=== PATIENT | female | born 1975 | race Caucasian/White ===

== ENCOUNTER 2016-07-21 03:44 | Inpatient (IN) | payer MEDICARE, OTHER ==
--- NOTE | ~2016-07-21 | CR72 ---
[facility] A Service of [facility] & [facility] RADIOLOGY TEXT RESULTS PATIENT: NAZIA JUNE LOCATION: [place] [address] : [birth year] UNIT #: [id number] AGE: [address]: Teresa Palmer MD SEX: F ORDER DR: [id number] [facility] [address] [facility]. [place], [place] [address] [id number] I MR#: [id number] Acc #: [id number] NAME: NAZIA JUNE : 1975 SEX: F STUDY DATE/TIME: 07/22/2016 15:15 UNIT: [facility] ROOM: [facility] STUDY DESCRIPTION: CR Chest Single View Portable Attending Physician: Teresa Palmer M.D. Ordering Physician: Teresa Palmer M.D. Primary Care Physician: Stewart Salvador Jr., M.D. MEDICAL IMAGING REPORT This report is preliminary unless electronic signature is present EXAM Portable chest HISTORY Central line placement today. Shortness of air. FINDINGS Right IJ central line tip is in the right atrium, 4.5 cm beyond the junction SVC and right atrium. No pneumothorax. Moderate infiltrate in the right perihilar region and medial right base has increased since earlier today and mild atelectasis or infiltrate in the retrocardiac left lower lobe has developed. Remainder of the chest is stable. Dictated by... Joss Corral M.D. THIS IS AN ELECTRONICALLY VERIFIED REPORT Joss Corral M.D. at 07/22/2016 11:11 PM DFL/pcl TD: 07/22/2016 18:27 JOB #: [id number] MEDICAL IMAGING REPORT Page 1 of 1 COPY
--- NOTE | ~2016-07-21 | DS ---
Unit #: [id number] #: [id number] Patient: NAZIA JUNE [id number] [address] [address] [id number] I MR#: [id number] NAME: NAZIA JUNE. ROOM: 555 Age: 41 Sex: F Admission Date: 07/21/2016 : 1975 Discharge Date: Attending Physician: Teresa Palmer M.D. Primary Care Physician: Stewart Salvador Jr., M.D. DISCHARGE SUMMARY DISCHARGE DIAGNOSES 1. Acute hypercapnic hypoxic respiratory failure. 2. Chronic hypoxic respiratory failure using two liters home oxygen. 3. Chronic obstructive pulmonary disease with exacerbation. 4. History of seizures. 5. Metabolic acidosis. 6. Mild hyponatremia. 7. Bilateral pneumonia. 8. Bipolar. 9. Diarrhea with no Clostridium difficile. 10. Hypokalemia. 11. Low folate level with macrocytosis. 12. Acute agitation during hospitalization course secondary to bipolar. 13. Diabetes mellitus type 2, uncontrolled. 14. Mild protein malnutrition. 15. Anemia, likely iron deficiency. No bleeding. CONSULTATIONS 1. Dr. Kim. 2. Dr. Gary. 3. Dr. Perdomo. PROCEDURES Patient had diagnostic bronchoscopy and right internal jugular central venous catheter placement on July 21, 2016. DIAGNOSTIC STUDIES LABORATORY: Glucose 259. WBC 17.8, hemoglobin 11.7, and platelets 235,000. Sodium 134, potassium 3.2, creatinine 0.5. Liver enzymes normal. Albumin 3.2. Stool negative for C. difficile negative. Urine culture negative. Blood cultures negative. Bronchoscopy cultures are growing Streptococcus agalactiae group B. IMAGING: Chest x-ray stable. Chest x-ray, two view, shows no pneumothorax and no acute infiltrates. ALLERGIES None. DISCHARGE MEDICATIONS 1. DuoNebs 3 mL inhalation q.4 p.r.n. shortness of breath. 2. Zofran 4 mg q.6 p.r.n. nausea or vomiting. 3. Topamax 50 p.o. b.i.d. 4. Seroquel 50 mg p.o. b.i.d. Unit #: [id number] #: [id number] Patient: NAZIA JUNE 5. Colace 100 p.o. b.i.d. 6. Folic acid 1 mg p.o. b.i.d. 7. Bacitracin ointment apply b.i.d. topically. 8. Symbicort 160 mcg 1 puff inhalation b.i.d. 9. NovoLog high-dose sliding scale a.c. and at bedtime. HOSPITAL COURSE A 41-year-old admitted on July 21 for shortness of breath. Acute hypercapnic, hypoxic respiratory failure with chronic hypoxic respiratory failure. Patient was intubated and sedated. Currently, she is on three liters. Continue with oxygen. Chronic obstructive pulmonary disease with exacerbation. Started on IV Solu-Medrol, DuoNebs, and Symbicort. Currently breathing better. Patient will be discharged on DuoNebs and Symbicort. History of seizures. Patient is not on any seizure medicine. She is on Topamax which I am going to continue. History of bipolar with severe agitation during hospitalization course. Patient was seen by Dr. Perdomo. Patient did receive a high dose of Seroquel, but later patient got lethargic, so Seroquel has been decreased to p.o. b.i.d. She will continue with Topamax 50 p.o. b.i.d. Bilateral pneumonia present on pneumonia, (1) . Patient is growing Streptococcus agalactiae. Patient received broad spectrum antibiotics. She completed her course. Infectious Disease was closely following. Diarrhea with no C. difficile most likely secondary to antibiotics. Diabetes mellitus type 2, new onset, uncontrolled. Patient will continue with sliding scale. Likely, hyperglycemia is from prednisone which has been discontinued. DISPOSITION Patient will be discharged to rehab. Her (2) . FOLLOWUP Patient will follow with [facility] as an outpatient in three weeks for bipolar and agitation. Discharge time taken is 35 minutes. Dictated by... Marissa Pickens TD: 08/02/2016 15:36 JOB #: [id number] Unit #: [id number] #: [id number] Patient: NAZIA JUNE DISCHARGE SUMMARY Page 1 of 1 X Teresa Palmer MD SUMMARY
--- NOTE | ~2016-07-21 | OR ---
Unit #: [id number] #: [id number] Patient: NAZIA JUNE [id number] [address] [address] [id number] I MR#: [id number] NAME: NAZIA JUNE ROOM: [facility] Date of Procedure: Admission Date: 07/21/2016 Surgeon: Zane Kim M.D. : 1975 Attending Physician: Teresa Palmer M.D. Primary Care Physician: Stewart Salvador Jr., M.D. PROCEDURE OPERATIVE NOTE PREPROCEDURE DIAGNOSIS Pneumonia. POSTPROCEDURE DIAGNOSIS Pneumonia. PROCEDURE PERFORMED Diagnostic bronchoscopy and bronchoalveolar lavage. INDICATION Pneumonia. DETAILS OF THE PROCEDURE After taking consent from the patient explaining the risks and benefits, the patient was placed in a proper position and bronchoscope introduced through the endotracheal tube which was sitting well above the valerie. We examined the right upper, right middle, right lower lobe, left upper lobe, lingula and left lower lobe. No endobronchial lesion was found. There was thick mucoid section in both lung which was therapeutically suctioned. Then, we did a bronchoalveolar lavage in the right middle lobe area and right lower lobe area with 100 mL saline in and 30 mL back. The patient tolerated the procedure very well. No complication happened. Dictated by... Marissa Calhoun/delvis TD: 07/22/2016 18:14 JOB #: [id number] Unit #: [id number] #: [id number] Patient: NAZIA JUNE PROCEDURE OPERATIVE NOTE Page 1 of 1 X Zane Kim MD PROCEDURE OPERATIVE NOTE
--- NOTE | ~2016-07-21 | CT57 ---
[facility] A Service of [facility] & [facility] RADIOLOGY TEXT RESULTS PATIENT: NAZIA JUNE LOCATION: [address] : [birth year] UNIT #: [id number] AGE: [address]: Teresa Palmer MD SEX: F ORDER DR: [id number] [facility] [address] [facility]. [place], [place] [address] [id number] I MR#: [id number] Acc #: [id number] NAME: NAZIA JUNE. : 1975 SEX: F STUDY DATE/TIME: 07/21/2016 14:11 UNIT: [facility] ROOM: [facility] STUDY DESCRIPTION: CT Chest Wo Cont Attending Physician: Teresa Palmer M.D. Ordering Physician: Zane Kim M.D. Primary Care Physician: Stewart Salvador Jr., M.D. MEDICAL IMAGING REPORT This report is preliminary unless electronic signature is present EXAM CT of the chest without contrast INDICATIONS Pneumonia, shortness of breath since this morning, COPD exacerbation. Respiratory failure. Mechanical ventilation. TECHNIQUE CT of the chest was performed without contrast. Coronal and sagittal reformatted images were obtained. This CT exam was performed with one or more of the following radiation dose reduction techniques: automatic exposure control, adjustment of mA and/or kV according to patient size, and iterative reconstruction. COMPARISON 04/26/2016 FINDINGS There are bilateral interstitial infiltrates, greatest in the lower lobes. There is a more dense area of atelectasis or consolidation in the base of right lower lobe. There is some patchy ground-glass opacities within both lungs. There is trace pleural fluid at the right base. There is an endotracheal tube in place. There is some mildly prominent mediastinal lymph nodes which are likely reactive, given the findings in the lungs. Limited imaging of the upper abdomen demonstrates a previous cholecystectomy. The bone windows are unremarkable. IMPRESSION 1. There are bilateral interstitial infiltrates, some of them coarse. These are mostly located within the lower lobes, but also in the upper lobes as well. There are also scattered ground-glass opacities within the lungs, and there is either atelectasis or consolidation within the base of the right lower lobe. The findings may represent STS. [facility] A Service of [facility] & [facility] RADIOLOGY TEXT RESULTS PATIENT: NAZIA JUNE LOCATION: [address] : [birth year] UNIT #: [id number] AGE: [address]: Teresa Palmer MD SEX: F ORDER DR: pneumonia or could be pulmonary edema. Correlate clinically. 2. Additional findings as described. Dictated by... Femi Wilkins M.D. THIS IS AN ELECTRONICALLY VERIFIED REPORT Femi Wilkins M.D. at 07/22/2016 9:36 AM SUE/osvaldo TD: 07/21/2016 16:57 JOB #: [id number] MEDICAL IMAGING REPORT Page 1 of 1 COPY
--- NOTE | ~2016-07-21 | OR ---
Unit #: [id number] #: [id number] Patient: NAZIA JUNE [id number] [address] [address] [id number] I MR#: [id number] NAME: NAZIA JUNE ROOM: [facility] Date of Procedure: Admission Date: 07/21/2016 Surgeon: Zane Kim M.D. : 1975 Attending Physician: Teresa Palmer M.D. Primary Care Physician: Stewart Salvador Jr., M.D. PROCEDURE OPERATIVE NOTE PREPROCEDURE DIAGNOSIS Respiratory failure. POSTPROCEDURE DIAGNOSIS Respiratory failure. PROCEDURE PERFORMED Right internal jugular central venous catheter placement. INDICATION Respiratory failure. DETAILS OF THE PROCEDURE After placing the patient in a proper position, we prepped the right side of the neck with ChloraPrep and, with modified Seldinger technique and ultrasound guidance, a triple-lumen central venous catheter placed in the right internal jugular vein. All three ports flushed and working. Guidewire was removed in total. No complication happened. The patient tolerated the procedure very well. Dictated by... Marissa Calhoun TD: 07/22/2016 18:18 JOB #: [id number] PROCEDURE OPERATIVE NOTE Page 1 of 1 X Zane iKm MD X PROCEDURE OPERATIVE NOTE
--- NOTE | ~2016-07-21 | CR72 ---
[facility] A Service of [facility] RADIOLOGY TEXT RESULTS PATIENT: NAZIA JUNE LOCATION: [address] : [birth year] UNIT #: [id number] AGE: [address]: Teresa Palmer MD SEX: F ORDER DR: [id number] [facility] [address] [facility]. [place], [place] [address] [id number] I MR#: [id number] Acc #: [id number] NAME: NAZIA JUNE : 1975 SEX: F STUDY DATE/TIME: 07/29/2016 4:04 UNIT: [facility] ROOM: [facility] STUDY DESCRIPTION: CR Chest Single View Portable Attending Physician: Teresa Palmer M.D. Ordering Physician: Zane Kim M.D. Primary Care Physician: Stewart Salvador Jr., M.D. MEDICAL IMAGING REPORT This report is preliminary unless electronic signature is present EXAM AP portable chest DATE 07/29/2016 at 0404 HISTORY Respiratory failure. COMPARISON AP portable chest 07/20/2016. CT chest 07/26/2016. FINDINGS Linear interstitial markings in both lungs predominately in the suprahilar regions appear unchanged. No dense consolidation. Heart size is within normal limits. Dobbhoff tube and ET tube have been removed. The right IJ approach central line remains at the right atrial level. No visible pneumothorax. IMPRESSION 1. Stable interstitial features in both lungs predominately in the suprahilar regions, without consolidation. 2. ET tube and Dobbhoff tube removal. 3. No pneumothorax. Dictated by... Justine Acosta M.D. THIS IS AN ELECTRONICALLY VERIFIED REPORT Justine Acosta M.D. at 07/30/2016 4:19 AM [facility]/shayy [facility] A Service [facility] RADIOLOGY TEXT RESULTS PATIENT: NAZIA JUNE LOCATION: [facility]05-10 : [birth year] UNIT #: [id number] AGE: [address]: Teresa Palmer MD SEX: F ORDER DR: TD: 07/29/2016 08:26 JOB #: [id number] MEDICAL IMAGING REPORT Page 1 of 1 COPY
--- NOTE | ~2016-07-21 | CR72 ---
[facility] A Service [facility] RADIOLOGY TEXT RESULTS PATIENT: NAZIA JUNE LOCATION: [address] : [birth year] UNIT #: [id number] AGE: [address]: Teresa Palmer MD SEX: F ORDER DR: [id number] [facility] [address] [facility]. [place], [place] [address] [id number] I MR#: [id number] Acc #: [id number] NAME: NAZIA JUNE : 1975 SEX: F STUDY DATE/TIME: 07/24/2016 2:50 UNIT: [facility] ROOM: [facility] STUDY DESCRIPTION: CR Chest Single View Portable Attending Physician: Teresa Palmer M.D. Ordering Physician: Zane Kim M.D. Primary Care Physician: Stewart Salvador Jr., M.D. MEDICAL IMAGING REPORT This report is preliminary unless electronic signature is present EXAM AP portable chest, 07/24/2016 HISTORY Respiratory failure. Followup cardiopulmonary status. TECHNIQUE AP portable chest x-ray. FINDINGS The exam shows no change since yesterday. Patchy interstitial and airspace infiltrates throughout both lungs remain stable. Heart size normal. No pneumothorax or pleural effusion. Endotracheal tube, right IJ central line and Dobbhoff feeding tube remain in good position. IMPRESSION Stable portable chest radiograph, unchanged since yesterday. Dictated by... Nick Díaz M.D. THIS IS AN ELECTRONICALLY VERIFIED REPORT Nick Díaz M.D. at 07/24/2016 5:58 AM FELISHA/filiberto TD: 07/24/2016 04:42 JOB #: [id number] [facility] A Service [facility] RADIOLOGY TEXT RESULTS PATIENT: NAZIA JUNE LOCATION: [address] : [birth year] UNIT #: [id number] AGE: [address]: Teresa Palmer MD SEX: F ORDER DR: MEDICAL IMAGING REPORT Page 1 of 1 COPY
--- NOTE | ~2016-07-21 | CR72 ---
[facility] A Service of [facility] & [facility] RADIOLOGY TEXT RESULTS PATIENT: NAZIA JUNE LOCATION: [facility] : [birth year] UNIT #: [id number] AGE: [address]: Teresa Palmer MD SEX: F ORDER DR: [id number] [facility] [address] [place], [place] [address] [id number] E MR#: [id number] Acc #: [id number] NAME: NAZIA JUNE : 1975 SEX: F STUDY DATE/TIME: 07/21/2016 3:56 UNIT: [facility] ROOM: STUDY DESCRIPTION: CR Chest Single View Portable Attending Physician: Jose David Escamilla M.D. Ordering Physician: Jose David Escamilla M.D. Primary Care Physician: Stewart Salvador Jr., M.D. MEDICAL IMAGING REPORT This report is preliminary unless electronic signature is present EXAM Portable chest 07/21/2016 INDICATION Shortness of air, chest pain for a week. COMPARISON 05/10/2016. FINDINGS A portable view of the chest was obtained. The heart size and vascularity are normal. The lungs are clear. The bones are normal. IMPRESSION No active disease. Dictated by... Nikos Tellez M.D. THIS IS AN ELECTRONICALLY VERIFIED REPORT Nikos Tellez M.D. at 07/21/2016 1:15 PM JUSTIN/rubén TD: 07/21/2016 06:19 JOB #: [id number] MEDICAL IMAGING REPORT Page 1 of 1 COPY
--- NOTE | ~2016-07-21 | CR72 ---
[facility] A Service of [facility] & [facility] RADIOLOGY TEXT RESULTS PATIENT: NAZIA JUNE LOCATION: [place] [address] : [birth year] UNIT #: [id number] AGE: [address]: Teresa Palmer MD SEX: F ORDER DR: [id number] [facility] [address] [place], [place] [address] [id number] I MR#: [id number] Acc #: [id number] NAME: NAZIA JUNE : 1975 SEX: F STUDY DATE/TIME: 07/23/2016 14:02 UNIT: [facility] ROOM: [facility] STUDY DESCRIPTION: CR Chest Single View Portable Attending Physician: Teresa Palmer M.D. Ordering Physician: Zane Kim M.D. Primary Care Physician: Stewart Salvador Jr., M.D. MEDICAL IMAGING REPORT This report is preliminary unless electronic signature is present EXAM Portable chest INDICATIONS Respiratory failure today. PROCEDURE Frontal view chest. COMPARISON 07/22/2016 FINDINGS Patchy alveolar and interstitial prominence is stable. ET tube and Dobbhoff tube are unchanged. There is no new dense consolidation or pneumothorax. IMPRESSION Stable chest. Dictated by... Chaz Leonardo M.D. THIS IS AN ELECTRONICALLY VERIFIED REPORT Chaz Leonardo M.D. at 07/24/2016 9:43 AM EED/psc TD: 07/23/2016 16:08 JOB #: [id number] MEDICAL IMAGING REPORT Page 1 of 1 COPY
--- NOTE | ~2016-07-21 | CR72 ---
[facility] A Service of [facility] & [facility] RADIOLOGY TEXT RESULTS PATIENT: NAZIA JUNE LOCATION: [facility] 555- : [birth year] UNIT #: [id number] AGE: [address]: Teresa Palmer MD SEX: F ORDER DR: [id number] [facility] [address] [facility]. [place], [place] [address] [id number] I MR#: [id number] Acc #: [id number] NAME: NAZIA JUNE : 1975 SEX: F STUDY DATE/TIME: 07/30/2016 3:45 UNIT: [facility] ROOM: [facility] STUDY DESCRIPTION: CR Chest Single View Portable Attending Physician: Teresa Palmer M.D. Ordering Physician: Zane Kim M.D. Primary Care Physician: Stewart Salvador Jr., M.D. MEDICAL IMAGING REPORT This report is preliminary unless electronic signature is present EXAM AP portable chest, 07/30/2016 at 03:45 HISTORY Respiratory failure, symptoms began 07/21/2016. COPD. History of smoking. History of seizures. COMPARISON AP portable chest, 07/29/2016 at 04:04 FINDINGS Patient's chin partially obscures the lung apices. Right IJ central line tip extends to the upper right atrial level. No pneumothorax is visible. Heart size is within normal limits. Fine interstitial markings are present within both lungs which could represent atypical interstitial pneumonia or edema. No dense consolidation is identified. Improved aeration in the upper lobes compared to 1 day prior. Presumed cholecystectomy changes. IMPRESSION 1. Ill-defined interstitial opacities throughout both lungs, greatest in the bases, with slight improved aeration in the upper lobes compared to 1 day prior. Findings may represent improving atypical interstitial edema or pneumonia since 07/29/2016. 2. No visible pneumothorax. Dictated by... Justine Acosta M.D. THIS IS AN ELECTRONICALLY VERIFIED REPORT Justine Acosta M.D. at 07/30/2016 10:02 PM [facility]/dione [facility] A Service of [facility] & [facility] RADIOLOGY TEXT RESULTS PATIENT: NAZIA JUNE LOCATION: [address] 555-01 : [birth year] UNIT #: [id number] AGE: [address]: Teresa Palmer MD SEX: F ORDER DR: TD: 07/30/2016 09:37 JOB #: [id number] MEDICAL IMAGING REPORT Page 1 of 1 COPY
--- NOTE | ~2016-07-21 | FU ---
[facility] Nutrition Therapy DATE: 07/28/16 Patient: NAZIA JUNE Physician: JYOKAElida Address: [address] [place] [address] Room/Bed: [address], Zip: [place] [address] Admit Date: 07/21/16 Date of : [birth year] Height: 4 9 Weight: 141 64 NUTRITION MONITORING/FOLLOW-UP: Reason: PT SEEN FOR FOLLOW-UP/ENTERAL NUTRITION SUPPORT DX: COPD, PNA, RESP FAILURE Anthropometrics: 4'9", WT: 141# (64 KG), BMI: 30.5 -ADMIT WEIGHT: 149# Labs: GLU: 189, BUN: 31, CREAT: 0.5, ALB: 3.2, ALT: 52 Meds: NACL, NOVOLOG, FUROSEMIDE, KCL, IV LEVAQUIN, SOLU-MEDROL, MIRALAX, PROTONIX, PROPOFOL (CURRENTLY OFF) I&O's: 2636/4186, 1 BM NOTED Skin: BILATERAL HANDS TRACE EDEMA Estimated Nutrition Needs: 2313-2034 KCAL 61-75 G PRO Assessment: CHART REVIEWED AND EVENTS NOTED. PT SEEN FOR ENTERAL NUTRITION SUPPORT FOLLOW-UP. PT CONTINUES TO BE INTUBATED AND SEDATED RECEIVING EN OF JEVITY 1.5 @ 40 ML/HR + 250 ML TID FREE H20 FLUSHES. PER RN AND CHART, PT TOLERATING EN, NOTING NO ISSUES AT THIS TIME. PER PUMP HISTORY, PT RECEIVING ~90% ESTIMATED NEEDS PAST 24 HOURS. NO FAMILY IN ROOM AT THIS TIME. RD TO CONTINUE TO FOLLOW. -TUBE FEEDS PROVIDE 1440 KCAL, 61 G PRO, 1480 ML FREE H20 Dx: INADEQUATE ORAL INTAKE R/T PT INTUBATED AEB EN IN PLACE.-ACTIVE. Intervention: 1. ENTERAL NUTRITION Monitoring, Evaluation and Goals: 1. ENTERAL NUTRITION SUPPORT; PROVIDE ~80-100% ESTIMATED NUTRIENT NEEDS- RESOLVED/ACTIVE 2. ORAL INTAKE; ADVANCE DIET PER SAUSAGE TIER + TOLERATE MEALS W/NO C/O N/V/D (PO>50%)-NOT MET 3. WEIGHTS; PROMOTE GRADUAL WEIGHT LOSS-ACTIVE 4. LABS; WNL: GLU-ACTIVE MONITOR: -TF RATE/RESIDUALS -WEIGHTS -LABS (GLU) -EXTUBATION? [facility] Nutrition Therapy DATE: 07/28/16 Patient: NAZIA JUNE Physician: CARLOS Address: [address] [place] [address] Room/Bed: [address], Zip: [place] [address] Admit Date: 07/21/16 Date of : [birth year] Height: 4 9 Weight: 141 64 Recommendations: 1. CONTINUE CURRENT ENTERAL NUTRITION SUPPORT OF JEVITY 1.5 @ 40 ML/HR -ADEQUATE FOR PT'S CURRENT ESTIMATED NEEDS CONTINUE FREE H20 FLUSHES PER MD 2. CONTINUE TO MONITOR BLOOD SUGARS-OPTIMIZE BLOOD SUGAR REGIMEN 3. ONCE PT EXTUBATED, ADVANCE DIET PER SAUSAGE TIER + REGULAR DIET RD WILL F/U PER PROTOCOL PT IS MOD/SEVERELY COMPROMISED Respectfully, ASPEN WILSON MS, RD, LD [facility] cc: client file
--- NOTE | ~2016-07-21 | CO ---
Unit #: [id number] #: [id number] Patient: NAZIA JUNE [id number] [address] [address] [id number] I MR#: [id number] NAME: NAZIA JUNE. ROOM: 54173 Age: 41 Sex: F Admission Date: 07/21/2016 : 1975 Attending Physician: Teresa Palmer M.D. Primary Care Physician: Stewart Salvador Jr., M.D. Consultation Date: 07/21/2016 CONSULTATION REPORT CHIEF COMPLAINT Shortness of breath. REASON FOR CONSULTATION Respiratory failure and chronic obstructive pulmonary disease exacerbation. HISTORY OF PRESENT ILLNESS The patient is a 41-year-old female who presented with complaints of shortness of breath. She has a past medical history of depression, bipolar disorder, chronic obstructive pulmonary disease and seizure disorder. She was given IV steroids and intubated by the emergency room physician. I am seeing the patient at the bedside. She is currently intubated and sedated. PAST MEDICAL HISTORY As described above. 1. Seizure disorder. 2. Bipolar. 3. Migraine headaches. PAST SURGICAL HISTORY 1. Appendectomy. 2. . 3. Cholecystectomy. ALLERGIES None as per records. CURRENT MEDICATIONS As per MAR. Have been reviewed. REVIEW OF SYSTEMS Positive pallor. No edema. No cyanosis or jaundice. The rest of the 12-point review of systems is unobtainable. PHYSICAL EXAMINATION GENERAL: Sedated, intubated. LUNGS: Bilateral air entry. Bilateral mild rhonchi. HEART: S1 plus S2. ABDOMEN: Nontender. Soft. Bowel sounds positive. EXTREMITIES: No edema. DIAGNOSTIC STUDIES Unit #: [id number] #: [id number] Patient: NAZIA JUNE IMAGING: Chest x-ray showed bilateral perihilar infiltrates increasing. LABORATORY: Blood gas, pH 7.26, pCO2 46, pO2 93, bicarb 19. chloride 103, calcium 8.0, white blood cell count 9, hemoglobin 13, hematocrit 40, platelets 190. ASSESSMENT 1. Acute respiratory failure. 2. Metabolic acidosis. 3. Acute chronic obstructive pulmonary disease exacerbation. 4. Acute bronchitis. PLAN Get a two-dimensional echo. Continue ventilator support, troponins, IV steroids, IV antibiotics. Check for flu. Noncontrast CT of the chest. The patient will be closely monitored. Please see orders for detailed plan. Thank you very much for this consultation. We will continue to follow this patient. Total critical care time 65 minutes in direct critical care of this patient. Dictated by... Marissa Calhoun/amber TD: 07/21/2016 10:28 JOB #: [id number] CONSULTATION REPORT Page 1 of 1 X Zane Kim MD X CONSULTATION REPORT
--- NOTE | ~2016-07-21 | CR72 ---
[facility] A Service of [facility] & [facility] RADIOLOGY TEXT RESULTS PATIENT: NAZIA JUNE LOCATION: [place] [address] : [birth year] UNIT #: [id number] AGE: [address]: Teresa Palmer MD SEX: F ORDER DR: [id number] [facility] [address]. [place], [place] [address] [id number] I MR#: [id number] Acc #: [id number] NAME: NAZIA JUNE : 1975 SEX: F STUDY DATE/TIME: 07/28/2016 4:15 UNIT: [facility] ROOM: [facility] STUDY DESCRIPTION: CR Chest Single View Portable Attending Physician: Teresa Palmer M.D. Ordering Physician: Zane Kim M.D. Primary Care Physician: Stewart Salvador Jr., M.D. MEDICAL IMAGING REPORT This report is preliminary unless electronic signature is present EXAM Chest x-ray 07/28/2016 HISTORY Respiratory failure. Patient on ventilator. Follow up cardiopulmonary status. TECHNIQUE AP portable chest x-ray. FINDINGS There has been no change since yesterday. Endotracheal tube, right IJ central line and Dobbhoff feeding tube remain in good position. Diffusely increased interstitial markings throughout both lungs, stable. Heart size normal. No airspace consolidation, pneumothorax or pleural effusion. IMPRESSION Stable portable chest radiograph, unchanged since yesterday. Dictated by... Nick Díaz M.D. THIS IS AN ELECTRONICALLY VERIFIED REPORT Nick Díaz M.D. at 08/02/2016 9:15 AM FELISHA/jerilyn TD: 07/28/2016 06:35 JOB #: [id number] MEDICAL IMAGING REPORT Page 1 of 1 COPY
--- NOTE | ~2016-07-21 | CR63 ---
[facility] A Service of [facility] & [facility] RADIOLOGY TEXT RESULTS PATIENT: NAZIA JUNE LOCATION: [address] : [birth year] UNIT #: [id number] AGE: [address]: Teresa Palmer MD SEX: F ORDER DR: [id number] [facility] [address] [place], [place] [address] [id number] I MR#: [id number] Acc #: [id number] NAME: NAZIA JUNE : 1975 SEX: F STUDY DATE/TIME: 07/31/2016 9:00 UNIT: [facility] ROOM: [facility] STUDY DESCRIPTION: CR Chest 2 View Attending Physician: Teresa Palmer M.D. Ordering Physician: Zane Kim M.D. Primary Care Physician: Stewart Salvador Jr., M.D. MEDICAL IMAGING REPORT This report is preliminary unless electronic signature is present EXAM 2 views of the chest dated 07/31/2016 COMPARISON Single view chest dated 07/30/2016. HISTORY Severe weakness, shortness of air, and respiratory failure for 10 days. FINDINGS 2 views of the chest was obtained. The tip of the right IJ approach catheter is in the region of the cavoatrial junction and adjacent right atrium. It has to be pulled back by another 3.5-4.5 cm and reimaged to confirm tip positioning. It is stable when compared to the prior study from yesterday. No associated pneumothorax. No new cardiopulmonary disease. Heart and mediastinum are within normal limits. Dictated by... Frederic Gabriel M.D. THIS IS AN ELECTRONICALLY VERIFIED REPORT Frederic Gabriel M.D. at 07/31/2016 3:24 PM CPR/aa TD: 07/31/2016 11:26 JOB #: [id number] MEDICAL IMAGING REPORT Page 1 of 1 COPY
--- NOTE | ~2016-07-21 | CT16 ---
[facility] A Service of [facility] RADIOLOGY TEXT RESULTS PATIENT: NAZIA JUNE LOCATION: [place] [address] : [birth year] UNIT #: [id number] AGE: [address]: Teresa Palmer MD SEX: F ORDER DR: [id number] [facility] [address] [facility] [place], [place] [address] [id number] I MR#: [id number] Acc #: [id number] NAME: NAZIA JUNE. : 1975 SEX: F STUDY DATE/TIME: 07/26/2016 15:06 UNIT: [facility] ROOM: [facility] STUDY DESCRIPTION: CT Angio Chest for PE Attending Physician: Teresa Palmer M.D. Ordering Physician: Zane Kim M.D. Primary Care Physician: Stewart Salvador Jr., M.D. MEDICAL IMAGING REPORT This report is preliminary unless electronic signature is present EXAM CT scan of the chest for pulmonary embolus protocol. HISTORY Short of air since 07/21/2016. Patient is unresponsive and on ventilator. COMPARISON 04/26/2016 TECHNIQUE Patient was given 80 mL of Isovue-370. Spiral imaging was performed through the chest. 3-dimensional reconstructions of the pulmonary arteries were generated. This CT exam was performed with one or more of the following radiation dose reduction techniques: automatic exposure control, adjustment of mA and/or kV according to patient size, and iterative reconstruction. FINDINGS The visualized portions of the upper abdomen show prior cholecystectomy, and the Dobbhoff tube is in the stomach. The aorta is normal in size, and there is no dissection. Pulmonary arteries are adequately opacified, and there is no CT evidence of pulmonary embolus. The tracheostomy tube is in good position. There is no mediastinal or hilar adenopathy. The bones are unremarkable. There are patchy bilateral ground glass infiltrates throughout both lungs. IMPRESSION 1. Fairly extensive patchy ground glass infiltrates. 2. No CT evidence of pulmonary embolism or dissection. 3. The endotracheal tube is in good position. [facility] A Service of [facility] & [facility] RADIOLOGY TEXT RESULTS PATIENT: NAZIA JUNE LOCATION: [address] : [birth year] UNIT #: [id number] AGE: [address]: Teresa Palmer MD SEX: F ORDER DR: Dictated by... Nikos Tellez M.D. THIS IS AN ELECTRONICALLY VERIFIED REPORT Nikos Tellez M.D. at 07/27/2016 7:17 AM JUSTIN/osvaldo TD: 07/26/2016 16:50 JOB #: [id number] MEDICAL IMAGING REPORT Page 1 of 1 COPY
--- NOTE | ~2016-07-21 | CR72 ---
[facility] A Service of [facility] & [facility] RADIOLOGY TEXT RESULTS PATIENT: NAZIA JUNE LOCATION: [address] : [birth year] UNIT #: [id number] AGE: [address]: Teresa Palmer MD SEX: F ORDER DR: [id number] [facility] [address]. [place], [place] [address] [id number] I MR#: [id number] Acc #: [id number] NAME: NAZIA JUNE : 1975 SEX: F STUDY DATE/TIME: 07/22/2016 4:34 UNIT: [facility] ROOM: [facility] STUDY DESCRIPTION: CR Chest Single View Portable Attending Physician: Teresa Palmer M.D. Ordering Physician: Zane Kim M.D. Primary Care Physician: Stewart Salvador Jr., M.D. MEDICAL IMAGING REPORT This report is preliminary unless electronic signature is present EXAM AP portable chest 07/22/2016 HISTORY Respiratory failure. Patient on ventilator. Follow up cardiopulmonary status. TECHNIQUE AP portable chest x-ray. FINDINGS The exam shows no change since yesterday. Endotracheal tube and Dobbhoff feeding tube remain in good position. Heart size is normal. Mild, somewhat patchy interstitial infiltrate or edema throughout both lungs, greatest in the perihilar regions. No dense airspace consolidation or pleural effusion. IMPRESSION Stable portable chest radiograph, unchanged since yesterday. Dictated by... Nick Díaz M.D. THIS IS AN ELECTRONICALLY VERIFIED REPORT Nick Díaz M.D. at 07/22/2016 5:58 AM FELISHA/erica TD: 07/22/2016 05:04 JOB #: [id number] MEDICAL IMAGING REPORT Page 1 of 1 COPY
--- NOTE | ~2016-07-21 | CR72 ---
[facility] A Service of [facility] & [facility] RADIOLOGY TEXT RESULTS PATIENT: NAZIA JUNE LOCATION: [address] : [birth year] UNIT #: [id number] AGE: [address]: Teresa Palmer MD SEX: F ORDER DR: [id number] [facility] [address]. [place], [place] [address] [id number] I MR#: [id number] Acc #: [id number] NAME: NAZIA JUNE : 1975 SEX: F STUDY DATE/TIME: 07/26/2016 2:23 UNIT: [facility] ROOM: [facility] STUDY DESCRIPTION: CR Chest Single View Portable Attending Physician: Teresa Palmer M.D. Ordering Physician: Zane Kim M.D. Primary Care Physician: Stewart Salvador Jr., M.D. MEDICAL IMAGING REPORT This report is preliminary unless electronic signature is present EXAM AP portable chest 07/26/2016. HISTORY Respiratory failure. Patient on ventilator. Follow up cardiopulmonary status. TECHNIQUE AP portable chest x-ray. FINDINGS The exam shows no change since yesterday. Mild diffuse pulmonary infiltrates, greatest at the right lung base. Endotracheal tube in good position. Right IJ central line tip in the right atrium. Feeding tube below the diaphragm. Heart size normal. IMPRESSION Stable portable chest radiograph, unchanged since yesterday. Dictated by... Nick Díaz M.D. THIS IS AN ELECTRONICALLY VERIFIED REPORT Nick Díaz M.D. at 07/26/2016 5:59 AM FELISHA/bryant TD: 07/26/2016 03:10 JOB #: [id number] MEDICAL IMAGING REPORT Page 1 of 1 COPY
--- NOTE | ~2016-07-21 | HP ---
Unit #: [id number] #: [id number] Patient: NAZIA JUNE [id number] [address] [address] [id number] I MR#: [id number] NAME: NAZIA JUNE. ROOM: 62[address] Age: 41 Sex: F Admission Date: 07/21/2016 : 1975 Attending Physician: Teresa Palmer M.D. Primary Care Physician: Stewart Salvador Jr., M.D. HISTORY AND PHYSICAL CHIEF COMPLAINT Shortness of breath. HISTORY OF PRESENT ILLNESS This is a 41-year-old with history of COPD admitted because of shortness of breath. Currently, patient is intubated and sedated so most of the history is taken from ER physician, chart, and her sister. According to the history of, she was short of breath for two weeks, which also has congestion. No fever, no chills, and no chest pain. Has cough, nonproductive cough. No heart racing. No dizziness. No syncope. No seizures. Her shortness of breath got worse. She is intubated and brought to ER. Currently, intubated and sedated. PAST MEDICAL HISTORY 1. History of COPD. 2. Depression. 3. Bipolar. 4. Appendectomy. 5. Hysterectomy. 6. section. ALLERGIES None. CURRENT HOME MEDICATIONS Unavailable. I will get it from her pharmacy. SOCIAL HISTORY Smokes 1 pack of cigarettes per day. No alcohol. No drugs. FAMILY HISTORY Positive for hypertension. REVIEW OF SYSTEMS Unobtainable because patient is intubated and sedated. PHYSICAL EXAMINATION VITAL SIGNS: Temperature 98.3, pulse 83, respirations 14, and blood pressure 151/78. GENERAL APPEARANCE: 41-year-old lying on bed not in acute distress. Intubated and sedated. HEENT: pupils are equal and reactive to light and accommodation. No pallor. No icterus. Dry mucosa. NECK: Supple. Unit #: [id number] #: [id number] Patient: NAZIA JUNE HEART: S1 and S2 heard. Regular rhythm. Tachycardia present. LUNGS: Bilateral wheezing present. ABDOMEN: Soft and nontender. Bowel sounds are present. EXTREMITIES: No pedal edema. SKIN: No rash. NEUROLOGICAL: Patient is sedated. DIAGNOSTIC STUDIES LABORATORY: Lactic acid 1. Troponin negative. ABG: pH 7.26, carbon dioxide 25, oxygen 93. Sodium 133, potassium 3.5, creatinine (1) , AST 53, ALT 33, alkaline phosphatase 85, total bilirubin 0.8, albumin 3.4. IMAGING: Chest x-ray initially is clear. Repeat chest x-ray today shows bilateral perihilar infiltrates, slightly increased. CARDIOVASCULAR: EKG: Sinus tachycardia. ASSESSMENT AND PLAN 1. Acute hypercapnic hypoxic respiratory failure currently intubated and sedated. Continue with the DuoNeb and IV Solu-Medrol and monitor. 2. COPD with exacerbation. Continue the DuoNeb and IV Solu-Medrol and monitor her pulse ox. 3. History of seizures. I will get set seizure medicine from pharmacy and give it to her. 4. Metabolic acidosis. Continue with IV fluids. 5. Mild hypernatremia, most likely from hypovolemia. Continue with IV fluids. 6. Possible bilateral pneumonia present on admission. Rule out other causes of bilateral infiltrates. I am going to check BNP and echocardiogram. I am going to start her on IV doxycycline and monitor. Going to repeat the chest x-ray in the morning. 7. History of bipolar. Currently intubated. 8. DVT prophylaxis with Lovenox and GI prophylaxis with Protonix. Dictated by Marissa Pickens/andreas TD: 07/21/2016 12:24 JOB #: [id number] HISTORY AND PHYSICAL Page 1 of 1 X Teresa Palmer MD X HISTORY AND PHYSICAL
--- NOTE | ~2016-07-21 | FU ---
[facility] DATE: 07/25/16 Patient: NAZIA JUNE Physician: CARLOS Address: [address] [place] [address] Room/Bed: [address], Zip: [place] [address] Admit Date: 07/21/16 Date of : [birth year] Height: 4 9 Weight: 163 74 NUTRITION MONITORING/FOLLOW-UP: Reason: PT SEEN FOR FOLLOW-UP/ENTERAL NUTRITION SUPPORT DX: SOA, PNA, RESPIRATORY FAILURE Anthropometrics: 57 INCHES, 163# (74 KG), BMI: 35.3 -ADMIT WEIGHT: 149# (68 KG) Labs: GLU: 316, BUN: 32, CA+:8.2, ALB: 2.5, A1c: 6.4, K+:2.8 Meds: NACL, NOVOLOG, FUROSEMIDE, LEVEMIR, KCL, FENTANYL, IV LEVAQUIN, PROPOFOL, SOLU-MEDROL, MIRALAX, ZOFRAN, PROTONIX I&O's: 9676/8476 Skin: BUE 1+ EDEMA; FEET TRACE EDEMA Estimated Nutrition Needs: [phone] KCAL 61-75 G PRO Assessment: CHART REVIEWED AND EVENTS NOTED. PT SEEN FOR ENTERAL NUTRITION SUPPORT FOLLOW-UP. PT CONTINUES TO BE INTUBATED AND SEDATED (PROPOFOL AT RATE OF 24.5 ML/HR PROVIDING ~647 KCAL FROM LIPIDS) RECEIVING ALTERNATIVE NUTRITION SUPPORT OF JEVITY 1.5 @ 20 ML/HR + PROSTAT BID. PER RN AND CHART, PT TOLERATING EN, NOTING NO ISSUES. NO FAMILY IN ROOM AT TIME OF VISIT. RD TO CONTINUE TO FOLLOW. -CURRENT EN PROVIDES 1567 KCAL, 61 G PRO, 365 ML FREE H20 Dx: INADEQUATE ORAL INTAKE R/T INTUBATION AEB NPO STATUS, NEED FOR EN.-SIGNS AND SYPMTOMS RESOLVED. STAGE I OBESE R/T LIFESTYLE, HX AEB BMI OF 32. NEW DX: INADEQUATE ORAL INTAKE R/T INTUBATION AEB PT RECEIVING EN. Intervention: 1. ENTERAL NUTRITION Monitoring, Evaluation and Goals: GOALS MET 1. ENTERAL NUTRITION; PROVIDE ~80-100% ESTIMATED NUTRIENT NEEDS 2. ORAL INTAKE; ADVANCE DIET AND TOLERATE W/NO C/O N/V/D (PO>50%) 3. LABS; WNL: K+, GLU 4. WEIGHTS; PROMOTE GRADUAL 5. GI; PROMOTE GRADUAL WEIGHT LOSS [facility] DATE: 07/25/16 Patient: NAZIA Wilson SHAYLEE Physician: CARLOS Address: [address] [place] [address] Room/Bed: [address], Zip: [place] [address] Admit Date: 07/21/16 Date of : [birth year] Height: 4 9 Weight: 163 74 MONITOR: -TF RATE/RESIDUALS -WEIGHTS -SEDATION RATE -EXTUBATION? -LABS (GLU, K+) Recommendations: 1. CONTINUE TO OPTIMIZE BLOOD SUGAR CONTROL REGIMEN 2' ELEVATED BLOOD SUGARS NOTED 2. CONTINUE CURRENT ENTERAL NUTRITION SUPPORT OF JEVITY 1.5 @ 20 ML/HR + SUGAR-FREE PROSTAT BID + SEDATION -ADEQUATE FOR PT'S CURRENT ESTIMATED NEEDS CONTINUE FREE H20 FLUSHES PER MD 3. ONCE PROPOFOL D/C'D, RECOMMEND ENTERAL NUTRITION SUPPORT OF JEVITY 1.5 @ GOAL RATE OF 40 ML/HR (ADVANCE 10 ML q 6 HOURS) -PROVIDES 1440 KCAL, 61 G PRO, 730 ML FREE H20 CONTINUE FREE H20 FLUSHES PER MD 4. ONCE PT EXTUBATED, ADVANCE DIET PER [employer]PER[employer]OR + REGULAR RD WILL F/U PER PROTOCOL PT IS MOD/SEVERELY COMPROMISED Respectfully, ASPEN WILSON MS, RD, LD [employer] [facility] cc: client file
--- NOTE | ~2016-07-21 | CO ---
Unit #: [id number] #: [id number] Patient: NAZIA JUNE [id number] [address] [address] [id number] I MR#: [id number] NAME: NAZIA JUNE. ROOM: [facility] Age: 41 Sex: F Admission Date: 07/21/2016 : 1975 Attending Physician: Teresa Palmer M.D. Primary Care Physician: Stewart Salvador Jr., M.D. Requesting Physician: Teresa Palmer M.D. Consultation Date: 07/27/2016 CONSULTATION REPORT REASON FOR CONSULTATION Pneumonia, respiratory failure. HISTORY OF PRESENT ILLNESS This is a 41-year-old white female who is currently on the ventilator. Information was obtained through discussion with Dr. Kim who is the pulmonary critical care attending, as well as the chart. She has severe COPD and was admitted with COPD exacerbation. Her chest x-ray on admission was clear. She was subsequently intubated and sedated and brought to the ICU where she was started on ceftriaxone. A bronchoscopic evaluation grew Group B strep in the BAL. She has been on ceftriaxone since admission. Today, levofloxacin was added because Dr. Kim thinks she may have an atypical pneumonia component as well because of failure to wean. I was asked to her for antibiotic recommendations. The patient is currently stable. She is on the vent and sedated. She is somewhat tachycardic but not hypotensive. According to ICU staff, she may be extubated in the next one or two days. She has not had any fever over the last several days and is not requiring any inotropic support at this time. PAST MEDICAL HISTORY 1. COPD. 2. Depression. 3. Bipolar. 4. Appendectomy. 5. Hysterectomy. 6. section. CURRENT MEDICATIONS List was reviewed. She is on: 1. Ceftriaxone. 2. Levofloxacin. 3. Solu-Medrol. 4. Librium. 5. Enoxaparin. 6. Albuterol. 7. Ipratropium. 8. Pantoprazole. 9. MiraLAX. 10. Seroquel. 11. Lasix. 12. NovoLog. Unit #: [id number] #: [id number] Patient: NAZIA JUNE ALLERGIES None. SOCIAL HISTORY Smokes one pack of cigarettes daily despite having severe COPD. No history of alcohol or drug use, however, her drug screen was positive for benzodiazepines and TCA. FAMILY HISTORY Positive for hypertension. REVIEW OF SYSTEMS Unable to obtain since the patient is on the ventilator. Chart was reviewed and discussions were held with the nursing staff. Pertinent findings are listed in the history of present illness. PHYSICAL EXAMINATION VITAL SIGNS: Temperature 98.2 and no fevers documented during this admission. Heart rate 96, respirations 20, blood pressure 111/69. There were no episodes of severe hypotension. GENERAL: Young, white female who looks older than her stated age. She is orally intubated and sedated, unable to provide any information. NECK: Absolutely supple. No rash. Trace nonpitting edema bilaterally. LUNGS: Decreased breath sounds and prolonged expiration with occasional wheezing. HEART: Muffled. No murmur. ABDOMEN: Soft, nontender. There is no rebound or guarding. Bowel sounds are normal. NEUROLOGIC: She is sedated. There is no signs of . She does move all four extremities with painful stimuli. DIAGNOSTIC STUDIES LABORATORY: BAL cultures are growing Streptococcus agalactiae group B. Blood cultures have been negative. HIV test is negative. Sodium 147, potassium 4.4, chloride 109, CO2 is 30, BUN 36, creatinine 0.05, glucose 225, liver function tests are normal, albumin is 2.9. White count 17.3, it was normal on admission. The leukocytosis likely related to steroids. Her hemoglobin level is 11.2, hematocrit 34, platelets 401. BNP 44. Legionella antigen is negative. BL is negative for PCPs. smear is negative as well. Influenza screen was negative. IMAGING: Chest x-ray and CT scan shows bilateral interstitial infiltrates. IMPRESSION Chronic obstructive pulmonary disease exacerbation with group B strep pneumonia with clinical suspicion for atypical component. RECOMMENDATIONS I agree with current antibiotic regimen. I will continue supportive care. Will follow along with you. Dictated by... Gal Gary M.D. Unit #: [id number] #: [id number] Patient: NAZIA JUNE CATIE/cami TD: 07/27/2016 20:00 JOB #: [id number] CONSULTATION REPORT Page 1 of 1 X Gal Gary MD CONSULTATION REPORT
--- NOTE | ~2016-07-21 | CR72 ---
[facility] A Service of [facility] & [facility] RADIOLOGY TEXT RESULTS PATIENT: NAZIA JUNE LOCATION: [address] : [birth year] UNIT #: [id number] AGE: [address]: Teresa Palmer MD SEX: F ORDER DR: [id number] [facility] [address] [facility]. [place], [place] [address] [id number] I MR#: [id number] Acc #: [id number] NAME: NAZIA JUNE : 1975 SEX: F STUDY DATE/TIME: 07/25/2016 4:41 UNIT: [facility] ROOM: [facility] STUDY DESCRIPTION: CR Chest Single View Portable Attending Physician: Teresa Palmer M.D. Ordering Physician: Zane Kim M.D. Primary Care Physician: Stewart Salvador Jr., M.D. MEDICAL IMAGING REPORT This report is preliminary unless electronic signature is present EXAM Chest x-ray 07/25/2016 HISTORY Respiratory failure. Patient on ventilator. Follow up pulmonary status. TECHNIQUE AP portable chest x-ray. FINDINGS The exam shows no change since yesterday. Diffuse patchy infiltrates throughout both lungs. No visible airspace consolidation, pneumothorax or pleural effusion. Heart size normal. Endotracheal tube, right IJ central line and Dobbhoff feeding tube remain in satisfactory position. IMPRESSION Stable portable chest radiograph, unchanged since yesterday. Dictated by... Nick Díaz M.D. THIS IS AN ELECTRONICALLY VERIFIED REPORT Nick Díaz M.D. at 07/25/2016 9:53 PM FELISHA/rubén TD: 07/25/2016 07:00 JOB #: [id number] MEDICAL IMAGING REPORT Page 1 of 1 COPY
--- NOTE | ~2016-07-21 | A ---
[facility] Nutrition Therapy DATE: 07/22/16 Patient: NAZIA JUNE Physician: CARLOS Address: [address] [place] [address] Room/Bed: [address], Zip: [place] [address] Admit Date: 07/21/16 Date of : [birth year] Height: 4 9 Weight: 149 68 NUTRITIONAL ASSESSMENT: REASON: EN diet order + consult for EN recs Admitting Dx: 41 y/o female admitted with COPD exacerbation PMH: COPD, depression Bipolar disorder, appy, 1 ppd smoker Anthropometrics: Ht: 57", Wt: 68 kg (149 lbs), BMI: 32 (Stage I obese) Past weights: 100-115 lbs (4801-4317), 138-154 lbs (9190-6796) Labs: Glucose 199, BUN 8 Meds: Miralax, PPI, Fentanyl, Solu-medrol, Zofran prn, NSIV @ 75 ml/hr, Propofol @ 16 ml/hr (providing 422 lipid kcals) I/O & Bowel function: LBM unknown Skin Integrity: No issues, no edema Estimated Nutrition Needs: 5517-2298 kcals per day (18-22 kcals/kg) 61-75 g protein per day (0.9-1.1 g/kg) Fluids consistent with kcal needs or per MD Assessment: Chart reviewed, events noted. See admitting dx and PMH as stated above. Patient is currently intubated and sedated with Propofol providing 422 lipid kcals, RN notes rate will likely be increased today. CXR showed ?JUAN ANTONIO PNA. Note past weights as stated above, it appears the patient has gradually gained weight over the years. No malnutrition risk screen performed as of yet. RD consulted to provide EN recs, currently Jevity 1.5 is running @ 20 ml/hr, RD determining goal rate. See recs below, will follow hospital course. Dx: 1) Inadequate oral intake r/t intubation AEB NPO, need for EN. 2) Stage I obese r/t lifestyle, hx, diet AEB BMI 32. Intervention: EN recs as stated below Monitoring, Evaluation and Goals: 1. EN consistent with estimated nutrition needs. 2. Glucose, lytes WNL. 3. Promote regular GI function. [facility] Nutrition Therapy DATE: 07/22/16 Patient: NAZIA JUNE Physician: CARLOS Address: [address] [place] [address] Room/Bed: [address], Zip: [place] [address] Admit Date: 07/21/16 Date of : [birth year] Height: 4 9 Weight: 149 68 4. Once medically stable; gradual weight loss towards a healthy BMI range. Monitor: Per protocol, criteria to determine if above goals met Recommendations: 1. Continue enteral nutrition with Jevity 1.5 @ 20 ml/hr, which will be the goal rate with Propofol, which is currently providing 422 lipid kcals. Please add 30 ml Prostat to be given per tube BID. This nutrition regimen + kcals from Propofol will provide 1342 kcals, 61 g protein and 365 ml water. Once at goal rate add free water flushes per MD RD suggests 250 ml q 4 hours and hold liquid IVF. 2. Once Propofol is D/C increase Jevity 1.5 to new goal rate of 40 ml/hr and discontinue Prostat. This will provide 1440 kcals, 61 g protein and 730 ml water. Once at new goal rate adjust free water flushes per MD RD suggests 250 ml QID and hold liquid IVF. 3. If the patient is extubated advance to regular diet as tolerated. Suggest FINANCE PROFESSOR eval if intubated for > 48 hours. Will follow hospital course Moderate-severe nutrition risk Respectfully, Dahlia Stokes RD, LD Food and Nutritional Services [facility] cc: client file
--- NOTE | ~2016-07-21 | FU ---
[facility] Nutrition Therapy DATE: 08/01/16 Patient: NAZIA JUNE Physician: CARLOS Address: [address] [place] [address] Room/Bed: [address] [place] [address], Zip: [place] [address] Admit Date: 07/21/16 Date of : [birth year] Height: 4 9 Weight: 131 59.5 NUTRITION MONITORING/FOLLOW-UP: Reason: PT SEEN FOR FOLLOW-UP DX: SOA, PNA, RESP FAILURE Anthropometrics: 4'9", WT: 131# (60 KG), BMI: 28.3 -ADMIT WEIGHT: 149#? Labs: GLU: 133, BUN: 29, K+:3.2, ALT: 63 Meds: NOVOLOG, PROTONIX, PREDNISONE, ZOFRAN, NACL I&O's: 2580/800 Skin: BLE/BUE GENERALIZED EDEMA; BUE & HANDS 2+ EDEMA; BILATERAL FEET 1+ EDEMA Estimated Nutrition Needs: 8279-0415 KCAL 61-75 G PRO Assessment: CHART REVIEWED AND EVENTS NOTED. PT SEEN FOR FOLLOW-UP. PT REPORTS APPETITE SLOWLY IMPROVING, NOTING NO C/O N/V/D. PT REPORTS TAKING BITES AT BREAKFAST BUT CONSUMED ~50% LUNCH TODAY. THIS RD ENCOURAGED ADEQUATE KCAL AND PROTEIN INTAKE, PT AGREED TO ENSURE PUDDING BID W/MEALS, RD TO ORDER. SIDEHAND EVALED PT AND DEEMED PT FOR MECHANICAL GROUND + NDD2 + CC + NECTAR THICK LIQUID DIET. PT REPORTED NO DIET QUESTIONS AT THIS TIME. PER CHART, PLANS FOR PT TO D/C TO REHAB SOON. RD TO CONTINUE TO FOLLOW. Dx: INADEQUATE ORAL INTAKE R/T INTUBATION AEB NPO STATUS, NEED FOR EN.-RESOLVED NEW DX: 1. DECREASED NUTRIENT INTAKE R/T CURRENT CONDITION AEB PT REPORT ABOVE. 2. ALTERED NUTRIENT UTILIZATION R/T PMH, CURRENT CONDITION AEB NEED FOR SIDEHAND TEXTURIZED DIET + CC DIET. Intervention: 1. MECHANICAL GROUND + NDD2 + NECTAR THICK LIQUID + CC DIET 2. ENSURE PUDDING BID Monitoring, Evaluation and Goals: 1. ENTERAL NUTRITION; PROVIDE ~100% ESTIMATED NUTRIENT NEEDS AT GOAL X 24 HOURS-RESOLVED 2. ORAL INTAKE; CONSUME >50% OF MEALS AND SUPPLEMENTS W/NO C/O N/V/D-ACTIVE 3. WEIGHTS; PROMOTE GRADUAL WEIGHT LOSS-ACTIVE 4. LABS; WNL-ACTIVE [facility] Nutrition Therapy DATE: 08/01/16 Patient: NAZIA Steve JUNE Physician: CARLOS Address: [address] [place] [address] Room/Bed: [address] [place] [address], Zip: [place] [address] Admit Date: 07/21/16 Date of : [birth year] Height: 4 9 Weight: 131 59.5 MONITOR: -PO INTAKE/APPETITE -WEIGHTS -SUPPLEMENT INTAKE Recommendations: 1. PLEASE ORDER JIL ENSURE PUDDING BID W/MEALS 2. CONTINUE TO ENCOURAGE PO AND SUPPLEMENT INTAKE 3. ADD MVI W/MINERAL DAILY TO PT'S CURRENT MEDICATION REGIMEN RD WILL F/U PER PROTOCOL PT IS MILDLY COMPROMISED Respectfully, ASPEN WILSON MS, RD, LD Food and Nutritional Services [facility] cc: client file
--- NOTE | ~2016-07-21 | EKG ---
PATIENT: NAZIA JUNE UNIT #: [id number] Ventricular Rate: 111 BPM Atrial Rate: 111 BPM P-R Interval: 126 ms QRS Duration: 82 ms Q-T Interval: 294 ms QTC Calculation(Bezet): 399 ms Calculated R Cement: 33 degrees Calculated T Cement: 13 degrees Diagnosis Line: Sinus tachycardia Diagnosis Line: Nonspecific T wave abnormality Diagnosis Line: Abnormal ECG Diagnosis Line: No previous ECGs available Diagnosis Line: Confirmed by PELON PATE MD ([id number]) on Diagnosis Line: 07/22/2016 6:38:08 AM INTERPRETING MD: TAVARES
--- NOTE | ~2016-07-21 | CO ---
Unit #: [id number] #: [id number] Patient: JOHANNA BELTRAN [id number] [address] [id number] I MR#: [id number] NAME: JOHANNA BELTRAN ROOM: [facility] Age: 41 Sex: F Admission Date: 07/21/2016 : 1975 Attending Physician: Teresa Palmer M.D. Primary Care Physician: Stewart Salvador Jr., M.D. Consultation Date: 08/02/2016 CONSULTATION REPORT REASON FOR CONSULTATION Followup. DISCUSSION Ms. Johanna Beltran is a 41-year-old white female seen in room 555, bed 1 on 08/02/2016. The patient dressed in hospital attire, able to walk with the help of physical therapist. The patient was able to answer questions slowly, somewhat guarded, flat affect, somewhat sleepy, but currently on Seroquel. Denied any suicidal or homicidal ideation. Denied any psychotic symptom, but guarded. The patient sleeping good. Vital Signs: 97.9, 92, 18, 101/63. Oxygen saturation 99%. MENTAL STATUS EXAMINATION General Appearance: The patient dressed in hospital attire, sitting comfortably in chair. Attention span, concentration: Poor. Speech slow. Oriented in place and person. Mood and affect: Sad, dysphoric, flat. Thought process: Circumstantial. Thought content: Guarded, paranoid, but denied any thoughts of harming self or others. Recent and remote memory: Poor. Language: Fair. Fund of knowledge poor. Insight and judgment: Impaired. DIAGNOSIS PSYCHIATRIC: Bipolar mood disorder not otherwise specified, F31.89 ASSESSMENT/PLAN 1. Supportive psychotherapy, psychoeducation provided to the patient. 2. Educated about benefits and side effects of medication and course and prognosis of illness after discussing with the patient's primary doctor. Recommending to continue at a lower dosage of Seroquel 50 mg twice daily as the patient seems somewhat sedated. The patient is also on Topamax 50 mg twice daily. Please feel free to call if any question, telephone #[phone]. Dictated by... Juan Pablo Perdomo M.D. JERMAIN/lyndsey TD: 08/03/2016 07:49 JOB #: [id number] Unit #: [id number] #: [id number] Patient: JOHANNA BELTRAN CONSULTATION REPORT Page 1 of 1 X Juan Pablo Perdomo MD CONSULTATION REPORT
--- NOTE | ~2016-07-21 | CO ---
Unit #: [id number] #: [id number] Patient: NAZIA JUNE [id number] [facility] [address]. [place], [place] [address] [id number] I MR#: [id number] NAME: NAZIA JUNE ROOM: 555 Age: 41 Sex: F Admission Date: 07/21/2016 : 1975 Attending Physician: Teresa Palmer M.D. Primary Care Physician: Stewart Salvador Jr., M.D. Consultation Date: 08/01/2016 CONSULTATION REPORT REASON FOR CONSULTATION Anxiety, agitation. HISTORY OF PRESENT ILLNESS Miss Spencer is a 41-year-old white female seen in room 555, bed 1 on 08/01/16 at [facility]. Patient was admitted on July 21, 2016. Patient was lying comfortably in bed, answered questions slowly. Flat affect, sad dysphoric mood. Patient was admitted with a COPD exacerbation. Patient is currently compliant with medication, no agitation. Patient was able to answer questions appropriately, currently denied any suicidal or homicidal ideation, denied any psychotic symptom, reported a history of bipolar mood disorder. At the time of admission patient was on Lamictal 100 mg b.i.d. and Zoloft 50 mg daily. Patient seems somewhat withdrawn, (1) flat affect, sad dysphoric mood, denied any complaint, compliant with medication. PAST PSYCHIATRIC HISTORY Past psychiatric history is remarkable for history of bipolar mood disorder. No known history of any inpatient treatment. History of outpatient treatment. PAST MEDICAL HISTORY AND MEDICATION HISTORY History of COPD. Patient is currently on folic acid, NovoLog, Protonix, prednisone. ALLERGIES None. FAMILY HISTORY AND SOCIAL HISTORY Patient has a good support system, no history of abuse, no history of any substance abuse. REVIEW OF SYSTEMS Complete review of systems is unremarkable. MENTAL STATUS EXAMINATION Vital signs: 98.5, 104, 18, 135/85, oxygen saturation 97%. GENERAL APPEARANCE: Patient dressed casually, lying comfortably in bed, seems somewhat withdrawn, flat affect. Attention span and concentration: Fair. SPEECH: Slow, long pauses. ORIENTATION: Oriented in time, place and person. MOOD AND AFFECT: Sad, depressed, flat. Unit #: [id number] #: [id number] Patient: NAZIA JUNE THOUGHT PROCESS/CONTENT: Patient denied any thoughts of harming self or others. MEMORY: Recent and remote memory poor. LANGUAGE: Fair. Fund of knowledge: Fair. Insight and judgment: Fair to slightly impaired. DIAGNOSES PSYCHIATRIC: 1. Bipolar mood disorder, not otherwise specified, F31.89. 2. Anxiety disorder, not otherwise specified, F40.01. SECONDARY: Deferred. MEDICAL: Please refer to H and P. STRESSORS Psychosocial stressors. ASSESSMENT AND PLAN 1. Supportive psychotherapy and psychoeducation provided to patient. 2. Educated about benefits and side effects of medication and course and prognosis of illness. 3. Advised to change Seroquel to 50 mg b.i.d. as patient seemed more withdrawn, flat. 4. Also obtain collateral information from the patient's physician. 5. If needed, consider further adjustment of medication. Please feel free to call if any question; telephone number [phone]. Dictated by... Marissa Foramn/alberta TD: 08/01/2016 21:00 JOB #: [id number] CONSULTATION REPORT Page 1 of 1 X Juan Pablo Perdomo MD X CONSULTATION REPORT
--- NOTE | ~2016-07-21 | CR7 ---
[facility] A Service of [facility] & [facility] RADIOLOGY TEXT RESULTS PATIENT: NAZIA JUNE LOCATION: [address] : [birth year] UNIT #: [id number] AGE: [address]: Teresa Palmer MD SEX: F ORDER DR: [id number] [facility] [address] [place], [place] [address] [id number] I MR#: [id number] Acc #: [id number] NAME: NAZIA JUNE : 1975 SEX: F STUDY DATE/TIME: 07/21/2016 21:20 UNIT: [facility] ROOM: [facility] STUDY DESCRIPTION: CR Abdomen Single AP View Attending Physician: Teresa Palmer M.D. Ordering Physician: Ed Yung Wright M.D. Primary Care Physician: Stewart Salvador Jr., M.D. MEDICAL IMAGING REPORT This report is preliminary unless electronic signature is present EXAM Portable abdomen. HISTORY Dobbhoff tube placement today. FINDINGS Portable radiograph of the abdomen demonstrates the feeding tube is curled in the proximal stomach with its tip at the level of the proximal gastric body in the medial left upper quadrant, extending 30 cm beyond the level of the EG junction. Visualized bowel gas pattern is normal. The exam does not include the mid and lower pelvis. Surgical clips in the right upper quadrant. IMPRESSION Feeding tube is curled in the proximal stomach with its tip at the level of the proximal gastric body. The tube extends 30 cm beyond the EG junction. Dictated by... Joss Corral M.D. THIS IS AN ELECTRONICALLY VERIFIED REPORT Joss Corral M.D. at 07/21/2016 10:32 PM ZEB/michael TD: 07/21/2016 22:16 JOB #: [id number] MEDICAL IMAGING REPORT Page 1 of 1 COPY
--- NOTE | ~2016-07-21 | CR72 ---
[facility] A Service of [facility] & [facility] RADIOLOGY TEXT RESULTS PATIENT: NAZIA JUNE LOCATION: [facility] [id number] : [birth year] UNIT #: [id number] AGE: [address]: Teresa Palmer MD SEX: F ORDER DR: [id number] [facility] [address] [place], [place] [address] [id number] MR#: [id number] Acc #: [id number] NAME: NAZIA JUNE. : 1975 SEX: F STUDY DATE/TIME: 07/21/2016 5:38 UNIT: [facility] ROOM: STUDY DESCRIPTION: CR Chest Single View Portable Attending Physician: Betzaida Coats M.D. Ordering Physician: Jose David Escamilla M.D. Primary Care Physician: Stewart Salvador Jr., M.D. MEDICAL IMAGING REPORT This report is preliminary unless electronic signature is present EXAM Portable chest INDICATION Intubation. Evaluate endotracheal tube. FINDINGS This portable view of the chest is compared to 1 from earlier today. Endotracheal tube has been added. Bilateral perihilar infiltrates have increased slightly. The heart size is normal. Dictated by... Nikos Tellez M.D. THIS IS AN ELECTRONICALLY VERIFIED REPORT Nikos Tellez M.D. at 07/21/2016 1:15 PM JUSTIN/rubén TD: 07/21/2016 07:16 JOB #: [id number] MEDICAL IMAGING REPORT Page 1 of 1 COPY
--- NOTE | ~2016-07-21 | CR72 ---
[facility] A Service of [facility] & [facility] RADIOLOGY TEXT RESULTS PATIENT: NAZIA JUNE LOCATION: [place] [address] : [birth year] UNIT #: [id number] AGE: [address]: Teresa Palmer MD SEX: F ORDER DR: [id number] [facility] [address] [place], [place] [address] [id number] I MR#: [id number] Acc #: [id number] NAME: NAZIA JUNE. : 1975 SEX: F STUDY DATE/TIME: 07/27/2016 5:40 UNIT: [facility] ROOM: [facility] STUDY DESCRIPTION: CR Chest Single View Portable Attending Physician: Teresa Palmer M.D. Ordering Physician: Zane Kim M.D. Primary Care Physician: Stewart Salvador Jr., M.D. MEDICAL IMAGING REPORT This report is preliminary unless electronic signature is present EXAM Portable chest 07/27/2016 05:40 COMPARISON 07/26/2016. HISTORY Short of air, respiratory failure for 6 days. FINDINGS Stable interstitial prominence. ET tube remains tip 3 cm above valerie. Right IJ central line tip right atrium, as well as a Dobbhoff type feeding tube. No pneumothorax. No new abnormality. No interval change since 07/26/2016. Question slight improvement in lung aeration. Dictated by... Wade Eng M.D. THIS IS AN ELECTRONICALLY VERIFIED REPORT Wade Eng M.D. at 07/27/2016 3:49 PM TEV/rubén TD: 07/27/2016 07:14 JOB #: [id number] MEDICAL IMAGING REPORT Page 1 of 1 COPY
[~2016-07-21 03:44] MED LIST: AMITRYPTYLINE; AMOXICILLIN PO; ASPIRIN; BENZONATATE PO; CIPRO PO; DILANTIN; IBUPROFEN PO; INDOCIN SR75 MG; INDOCIN SR75 MG PO; KETOPROFEN PO; KLONOPIN; LAMICTAL PO; LEXAPRO PO; LYRICA; LYRICA PO; PHENERGAN PO; PHENERGAN W/CO120 ML PO; PORTLAND PHARMACY; PRENATAL MULITV1 TAB PO; PRILOSEC PO; PROVERA PO; RELPAX40 MG; ROBAXIN PO; SEROQUEL; TOPAMAX PO; TYLOX 5/500 CAP1 CAP PO; VICODIN 5/500 T1 TAB PO; ZITHROMAX PO; ZOLOFT PO; [UNRECOGNIZED DRUG - OTHER]
[2016-07-21 04:55] LABS: POC - CKMB <1.0 ng/mL (0.0-7.9); POC - TROPONIN <0.05 ng/mL (<=0.05)
[2016-07-21 05:48] LABS: ARTERIAL BLD GAS O2 SATURATION 94.5 % (90.0-100.0); ARTERIAL BLOOD GAS ALLEN TEST NORMAL; ARTERIAL BLOOD GAS ART SITE LEFT RADIAL; ARTERIAL BLOOD GAS CARBOXY HB 1.3 %sat (0.0-9.0); ARTERIAL BLOOD GAS DELIVERY VENT; ARTERIAL BLOOD GAS HCO3 21.2 mmol/L; ARTERIAL BLOOD GAS PCO2 46.9 mmHg (35.0-45.0); ARTERIAL BLOOD GAS PO2 93.9 mmHg (80.0-100); ARTERIAL BLOOD GAS VENT MODE AC; ARTERIAL BLOOD GAS pH 7.264 (7.350-7.450); ARTERIAL DRAW? YES
[2016-07-21 06:24] LABS: POC - CKMB <1.0 ng/mL (0.0-7.9); POC - TROPONIN <0.05 ng/mL (<=0.05)
[2016-07-21 06:50] LABS: BASOPHIL% 0.3 % (0-2.5); HEMOGLOBIN 13.5 gm/dL (12.0-16.0); LYMPHOCYTE# 0.9 X10e3 (1.0-3.5); LYMPHOCYTE% 9.7 % (17.0-45.0); MEAN CELL VOLUME 100.4 FL (83-96); MEAN CORPUSCULAR HEMOGLOBIN 33.9 PG (28-34); MEAN CORPUSCULAR HGB CONC 33.8 g/dL (30-36); MEAN PLATELET VOLUME 8.6 FL (6.5-11.5); MONOCYTE# 0.3 X10e3 (0-1.0); MONOCYTE% 3.3 % (3.0-12.0); NEUTROPHIL# 7.9 X10e3 (1.5-7.1); NEUTROPHIL% 86.7 % (40-75); PLATELET COUNT 190 X10e3 (140-420); RED BLOOD COUNT 3.99 X10e (3.90-5.30); RED CELL DISTRIBUTION WIDTH 15.3 % (11.0-15.5); WHITE BLOOD COUNT 9.1 X10e3 (4.0-10.5)
[2016-07-21 06:53] LABS: DIFF IND NO
[2016-07-21 07:01] LABS: PARTIAL THROMBOPLASTIN TIME 26.3 SECONDS (23.5-31.3); PROTHROMBIN TIME (PATIENT) 10.2 SECONDS (9.6-11.5)
[2016-07-21 07:19] LABS: ALBUMIN SERUM 3.4 g/dL (3.5-5.0); ALKALINE PHOSPHATASE 85 U/L (32-92); ALT (SGPT) 33 U/L (10-40); AST (SGOT) 53 U/L (10-42); BILIRUBIN, DIRECT 0.3 mg/dL (0.0-0.2); BILIRUBIN,INDIRECT 0.5 mg/dL (0.0-0.9); BILIRUBIN,TOTAL 0.8 mg/dL (0.2-2.0); BLOOD UREA NITROGEN <5 mg/dL (9-23); BUN/CREATININE RATIO 8.33; CARBON DIOXIDE 19 mmol/L (22-31); CHLORIDE 103 mmol/L (100-111); CREATININE SERUM 0.6 mg/dL (0.6-1.4); GLUCOSE FASTING 192 mg/dL (70-110); POTASSIUM 3.5 mmol/L (3.5-5.1); PROTEIN TOTAL SERUM 6.9 g/dL (6.0-8.3); SODIUM 133 mmol/L (135-145)
[2016-07-21 12:30] LABS: INFLUENZA A NEG (NEG)
[2016-07-21 12:31] LABS: INFLUENZA B NEG (NEG)
[2016-07-21] MEDS ORDERED: QUETIAPINE FUM300 M1 PO (12:55)
[2016-07-21] MEDS ORDERED: BUSPIRONE HCL7.5 MG PO (12:55)
[2016-07-21] MEDS ORDERED: TRIHEXYPHENIDYL5 MG PO (12:56)
[2016-07-21] MEDS ORDERED: DOCUSATE SODIU100 MG PO (12:56)
[2016-07-21] MEDS ORDERED: TOPIRAMATE50 MG PO (12:56)
[2016-07-21] MEDS ORDERED: TIZANIDINE HCL4 M1 PO (12:58)
[2016-07-21] MEDS ORDERED: GAVILAX8.5 GM PO (12:58)
[2016-07-21] MEDS ORDERED: ONDANSETRON ODT4 MG PO (12:59)
[2016-07-21] MEDS ORDERED: TOPAMAX50 MG PO (13:00)
[2016-07-21 13:50] LABS: MB 0.8 ng/ml
[2016-07-21 13:54] LABS: ARTERIAL BLD GAS O2 SATURATION 96.6 % (90.0-100.0); ARTERIAL BLOOD GAS CARBOXY HB 0.3 %sat (0.0-9.0); ARTERIAL BLOOD GAS HCO3 19.8 mmol/L; ARTERIAL BLOOD GAS MET HB 0.7 %sat (0.0-2.0); ARTERIAL BLOOD GAS PCO2 37.1 mmHg (35.0-45.0); ARTERIAL BLOOD GAS pH 7.336 (7.350-7.450)
[2016-07-21 13:58] LABS: ARTERIAL BLOOD GAS ALLEN TEST NORMAL; ARTERIAL BLOOD GAS ART SITE RIGHT RADIAL; ARTERIAL BLOOD GAS VENT MODE A/C; ARTERIAL DRAW? YES
[2016-07-21 20:58] LABS: CK TOTAL 57 IU/L (26-140)
[2016-07-22 04:53] LABS: ARTERIAL BLD GAS O2 SATURATION 95.5 % (90.0-100.0); ARTERIAL BLOOD GAS CARBOXY HB 0.3 %sat (0.0-9.0); ARTERIAL BLOOD GAS HCO3 20.7 mmol/L; ARTERIAL BLOOD GAS MET HB 0.8 %sat (0.0-2.0); ARTERIAL BLOOD GAS PCO2 37.3 mmHg (35.0-45.0); ARTERIAL BLOOD GAS PO2 86.6 mmHg (80.0-100); ARTERIAL BLOOD GAS pH 7.352 (7.350-7.450)
[2016-07-22 05:05] LABS: ARTERIAL BLOOD GAS ALLEN TEST NORMAL; ARTERIAL BLOOD GAS ART SITE LEFT RADIAL; ARTERIAL BLOOD GAS DELIVERY VENT; ARTERIAL BLOOD GAS VENT MODE AC; ARTERIAL DRAW? YES
[2016-07-22 06:01] LABS: BASOPHIL% 0.3 % (0-2.5); HEMATOCRIT 38.2 % (35.0-45.0); HEMOGLOBIN 12.6 gm/dL (12.0-16.0); LYMPHOCYTE# 2.8 X10e3 (1.0-3.5); LYMPHOCYTE% 19.5 % (17.0-45.0); MEAN CELL VOLUME 101.2 FL (83-96); MEAN CORPUSCULAR HEMOGLOBIN 33.4 PG (28-34); MEAN PLATELET VOLUME 8.7 FL (6.5-11.5); MONOCYTE# 0.9 X10e3 (0-1.0); MONOCYTE% 6.4 % (3.0-12.0); NEUTROPHIL# 10.7 X10e3 (1.5-7.1); NEUTROPHIL% 73.8 % (40-75); PLATELET COUNT 239 X10e3 (140-420); RED BLOOD COUNT 3.78 X10e (3.90-5.30); RED CELL DISTRIBUTION WIDTH 15.5 % (11.0-15.5)
[2016-07-22 06:04] LABS: DIFF IND NO; WHITE BLOOD COUNT 14.5 X10e3 (4.0-10.5)
[2016-07-22 06:56] LABS: ALBUMIN SERUM 2.9 g/dL (3.5-5.0); BILIRUBIN,TOTAL 0.6 mg/dL (0.2-2.0); BUN/CREATININE RATIO 13.33; CALCIUM SERUM 8.5 mg/dL (8.4-10.2); CREATININE SERUM 0.6 mg/dL (0.6-1.4); POTASSIUM 3.5 mmol/L (3.5-5.1); PROTEIN TOTAL SERUM 5.8 g/dL (6.0-8.3)
[2016-07-22 14:23] LABS: AMPHETAMINE NEG (NEG); BARBITURATES NEG (NEG); BENZODIAZEPINES POS (NEG); COCAINE NEG (NEG); MARIJUANA NEG (NEG); OPIATES NEG (NEG); TRICYCLIC ANTIDEPRESSANTS POS (NEG); U METHADONE NEG (NEG)
[2016-07-22 15:25] LABS: BODY FLUID APPEARANCE TURBID; BODY FLUID SOURCE BRONCHIAL LAVAGE
[2016-07-23 04:53] LABS: ARTERIAL BLD GAS O2 SATURATION 91.7 % (90.0-100.0); ARTERIAL BLOOD GAS CARBOXY HB 0.3 %sat (0.0-9.0); ARTERIAL BLOOD GAS HCO3 20.5 mmol/L; ARTERIAL BLOOD GAS MET HB 0.8 %sat (0.0-2.0); ARTERIAL BLOOD GAS PCO2 48.3 mmHg (35.0-45.0); ARTERIAL BLOOD GAS pH 7.237 (7.350-7.450)
[2016-07-23 05:08] LABS: BASOPHIL% 0.2 % (0-2.5); DIFF IND YES; HEMATOCRIT 35.8 % (35.0-45.0); HEMOGLOBIN 11.7 gm/dL (12.0-16.0); LYMPHOCYTE# 1.4 X10e3 (1.0-3.5); LYMPHOCYTE% 9.2 % (17.0-45.0); MEAN CORPUSCULAR HEMOGLOBIN 33.8 PG (28-34); MEAN CORPUSCULAR HGB CONC 32.8 g/dL (30-36); MEAN PLATELET VOLUME 8.5 FL (6.5-11.5); MONOCYTE# 0.8 X10e3 (0-1.0); MONOCYTE% 5.3 % (3.0-12.0); NEUTROPHIL# 12.9 X10e3 (1.5-7.1); NEUTROPHIL% 85.3 % (40-75); PLATELET COUNT 276 X10e3 (140-420); RED BLOOD COUNT 3.47 X10e (3.90-5.30); RED CELL DISTRIBUTION WIDTH 15.4 % (11.0-15.5); WHITE BLOOD COUNT 15.1 X10e3 (4.0-10.5)
[2016-07-23 05:10] LABS: ARTERIAL BLOOD GAS ALLEN TEST NORMAL; ARTERIAL BLOOD GAS ART SITE RIGHT RADIAL; ARTERIAL BLOOD GAS PO2 68.2 mmHg (80.0-100); ARTERIAL BLOOD GAS VENT MODE AC; ARTERIAL DRAW? YES
[2016-07-23 05:31] LABS: ANISOCYTOSIS SL; PLATELET ESTIMATE NORMAL (NORMAL); POIKILOCYTOSIS SL
[2016-07-23 05:37] LABS: ALBUMIN SERUM 2.8 g/dL (3.5-5.0); BILIRUBIN,TOTAL 0.4 mg/dL (0.2-2.0); BUN/CREATININE RATIO 21.66; CALCIUM SERUM 8.3 mg/dL (8.4-10.2); CREATININE SERUM 0.6 mg/dL (0.6-1.4)
[2016-07-23 07:19] LABS: ARTERIAL BLD GAS O2 SATURATION 90.3 % (90.0-100.0); ARTERIAL BLOOD GAS CARBOXY HB 0.3 %sat (0.0-9.0); ARTERIAL BLOOD GAS HCO3 20.3 mmol/L; ARTERIAL BLOOD GAS MET HB 0.6 %sat (0.0-2.0); ARTERIAL BLOOD GAS PCO2 44.1 mmHg (35.0-45.0); ARTERIAL BLOOD GAS pH 7.271 (7.350-7.450)
[2016-07-23 07:20] LABS: ARTERIAL BLOOD GAS ALLEN TEST NORMAL; ARTERIAL BLOOD GAS ART SITE RIGHT RADIAL; ARTERIAL BLOOD GAS PO2 60.5 mmHg (80.0-100); ARTERIAL BLOOD GAS VENT MODE A/C; ARTERIAL DRAW? YES
[2016-07-23 15:17] LABS: ARTERIAL BLD GAS O2 SATURATION 94.1 % (90.0-100.0); ARTERIAL BLOOD GAS CARBOXY HB 0.3 %sat (0.0-9.0); ARTERIAL BLOOD GAS HCO3 19.6 mmol/L; ARTERIAL BLOOD GAS MET HB 0.9 %sat (0.0-2.0); ARTERIAL BLOOD GAS PO2 85.2 mmHg (80.0-100)
[2016-07-23 15:18] LABS: ARTERIAL BLOOD GAS ART SITE RIGHT RADIAL; ARTERIAL BLOOD GAS DELIVERY VENT; ARTERIAL BLOOD GAS VENT MODE CPAP; ARTERIAL BLOOD GAS pH 7.177 (7.350-7.450); ARTERIAL DRAW? YES
[2016-07-24 03:23] LABS: BASOPHIL% 0.2 % (0-2.5); EOSINOPHIL% 0.1 % (0.0-7.0); HEMATOCRIT 32.6 % (35.0-45.0); HEMOGLOBIN 10.9 gm/dL (12.0-16.0); LYMPHOCYTE% 7.1 % (17.0-45.0); MEAN CELL VOLUME 100.4 FL (83-96); MEAN CORPUSCULAR HEMOGLOBIN 33.5 PG (28-34); MEAN CORPUSCULAR HGB CONC 33.4 g/dL (30-36); MEAN PLATELET VOLUME 8.2 FL (6.5-11.5); MONOCYTE# 0.9 X10e3 (0-1.0); NEUTROPHIL# 12.6 X10e3 (1.5-7.1); NEUTROPHIL% 86.6 % (40-75); PLATELET COUNT 304 X10e3 (140-420); RED BLOOD COUNT 3.24 X10e (3.90-5.30); RED CELL DISTRIBUTION WIDTH 15.8 % (11.0-15.5); WHITE BLOOD COUNT 14.6 X10e3 (4.0-10.5)
[2016-07-24 03:24] LABS: DIFF IND NO
[2016-07-24 03:45] LABS: ALBUMIN SERUM 2.5 g/dL (3.5-5.0); BILIRUBIN,TOTAL 0.3 mg/dL (0.2-2.0); CALCIUM SERUM 8.1 mg/dL (8.4-10.2); CREATININE SERUM 0.5 mg/dL (0.6-1.4); GLOM FILT RATE Estimated 121.1 mL/min (>60); MAGNESIUM 2.2 mg/dL (1.6-3.0); POTASSIUM 3.7 mmol/L (3.5-5.1); PROTEIN TOTAL SERUM 5.5 g/dL (6.0-8.3)
[2016-07-24 05:08] LABS: ARTERIAL BLD GAS O2 SATURATION 96.3 % (90.0-100.0); ARTERIAL BLOOD GAS CARBOXY HB 0.4 %sat (0.0-9.0); ARTERIAL BLOOD GAS HCO3 18.9 mmol/L; ARTERIAL BLOOD GAS MET HB 1.1 %sat (0.0-2.0); ARTERIAL BLOOD GAS PCO2 49.8 mmHg (35.0-45.0)
[2016-07-24 05:14] LABS: ARTERIAL BLOOD GAS pH 7.188 (7.350-7.450)
[2016-07-24 05:15] LABS: ARTERIAL BLOOD GAS ALLEN TEST NORMAL; ARTERIAL BLOOD GAS ART SITE LEFT RADIAL; ARTERIAL BLOOD GAS VENT MODE AC; ARTERIAL DRAW? YES
[2016-07-24 06:48] LABS: ARTERIAL BLOOD GAS CARBOXY HB 0.2 %sat (0.0-9.0); ARTERIAL BLOOD GAS HCO3 18.3 mmol/L; ARTERIAL BLOOD GAS MET HB 0.5 %sat (0.0-2.0); ARTERIAL BLOOD GAS PCO2 29.1 mmHg (35.0-45.0); ARTERIAL BLOOD GAS PO2 83.7 mmHg (80.0-100); ARTERIAL BLOOD GAS pH 7.407 (7.350-7.450)
[2016-07-24 06:49] LABS: ARTERIAL BLOOD GAS ALLEN TEST NORMAL; ARTERIAL BLOOD GAS ART SITE RIGHT RADIAL; ARTERIAL BLOOD GAS DELIVERY VENT; ARTERIAL BLOOD GAS VENT MODE AC; ARTERIAL DRAW? YES
[2016-07-24 15:03] LABS: FOLATE (FOLIC ACID) 2.3 ng/mL (>5.8)
[2016-07-25 03:34] LABS: BASOPHIL% 0.3 % (0-2.5); DIFF IND YES; HEMATOCRIT 33.6 % (35.0-45.0); HEMOGLOBIN 11.3 gm/dL (12.0-16.0); LYMPHOCYTE# 1.3 X10e3 (1.0-3.5); LYMPHOCYTE% 8.2 % (17.0-45.0); MEAN CELL VOLUME 99.6 FL (83-96); MEAN CORPUSCULAR HEMOGLOBIN 33.5 PG (28-34); MEAN CORPUSCULAR HGB CONC 33.6 g/dL (30-36); MEAN PLATELET VOLUME 8.8 FL (6.5-11.5); MONOCYTE# 1.1 X10e3 (0-1.0); NEUTROPHIL# 13.2 X10e3 (1.5-7.1); NEUTROPHIL% 84.5 % (40-75); PLATELET COUNT 423 X10e3 (140-420); RED BLOOD COUNT 3.38 X10e (3.90-5.30); RED CELL DISTRIBUTION WIDTH 15.2 % (11.0-15.5); WHITE BLOOD COUNT 15.6 X10e3 (4.0-10.5)
[2016-07-25 04:05] LABS: ALBUMIN SERUM 2.5 g/dL (3.5-5.0); BILIRUBIN,TOTAL 0.2 mg/dL (0.2-2.0); BUN/CREATININE RATIO 45.71; CALCIUM SERUM 8.2 mg/dL (8.4-10.2); CREATININE SERUM 0.7 mg/dL (0.6-1.4); GLOM FILT RATE Estimated 108.4 mL/min (>60); MAGNESIUM 2.3 mg/dL (1.6-3.0); PROTEIN TOTAL SERUM 5.9 g/dL (6.0-8.3)
[2016-07-25 04:07] LABS: POTASSIUM 2.8 mmol/L (3.5-5.1)
[2016-07-25 04:20] LABS: ARTERIAL BLD GAS O2 SATURATION 94.5 % (90.0-100.0); ARTERIAL BLOOD GAS CARBOXY HB 0.3 %sat (0.0-9.0); ARTERIAL BLOOD GAS HCO3 23.2 mmol/L; ARTERIAL BLOOD GAS MET HB 0.7 %sat (0.0-2.0); ARTERIAL BLOOD GAS PCO2 41.1 mmHg (35.0-45.0); ARTERIAL BLOOD GAS pH 7.361 (7.350-7.450)
[2016-07-25 04:45] LABS: PLATELET ESTIMATE INCREASED (NORMAL)
[2016-07-25 04:46] LABS: ANISOCYTOSIS MOD
[2016-07-25 05:00] LABS: ARTERIAL BLOOD GAS PO2 75.7 mmHg (80.0-100)
[2016-07-25 05:01] LABS: ARTERIAL BLOOD GAS ALLEN TEST NORMAL; ARTERIAL BLOOD GAS ART SITE LEFT RADIAL; ARTERIAL BLOOD GAS DELIVERY VENT; ARTERIAL BLOOD GAS VENT MODE AC; ARTERIAL DRAW? YES
[2016-07-25 14:48] LABS: ARTERIAL BLD GAS O2 SATURATION 96.8 % (90.0-100.0); ARTERIAL BLOOD GAS CARBOXY HB 0.3 %sat (0.0-9.0); ARTERIAL BLOOD GAS HCO3 25.9 mmol/L; ARTERIAL BLOOD GAS MET HB 0.7 %sat (0.0-2.0); ARTERIAL BLOOD GAS PCO2 37.6 mmHg (35.0-45.0); ARTERIAL BLOOD GAS PO2 94.3 mmHg (80.0-100); ARTERIAL BLOOD GAS pH 7.447 (7.350-7.450)
[2016-07-25 14:51] LABS: ARTERIAL BLOOD GAS ALLEN TEST NORMAL; ARTERIAL BLOOD GAS ART SITE RIGHT RADIAL; ARTERIAL BLOOD GAS DELIVERY VENT; ARTERIAL BLOOD GAS VENT MODE A/C; ARTERIAL DRAW? YES
[2016-07-26 03:34] LABS: BASOPHIL% 0.2 % (0-2.5); HEMATOCRIT 35.6 % (35.0-45.0); LYMPHOCYTE% 9.7 % (17.0-45.0); MEAN CELL VOLUME 99.3 FL (83-96); MEAN CORPUSCULAR HEMOGLOBIN 33.3 PG (28-34); MEAN CORPUSCULAR HGB CONC 33.6 g/dL (30-36); MEAN PLATELET VOLUME 8.3 FL (6.5-11.5); MONOCYTE# 1.4 X10e3 (0-1.0); MONOCYTE% 6.6 % (3.0-12.0); NEUTROPHIL# 17.2 X10e3 (1.5-7.1); NEUTROPHIL% 83.5 % (40-75); PLATELET COUNT 395 X10e3 (140-420); RED BLOOD COUNT 3.58 X10e (3.90-5.30); RED CELL DISTRIBUTION WIDTH 15.5 % (11.0-15.5); WHITE BLOOD COUNT 20.7 X10e3 (4.0-10.5)
[2016-07-26 03:35] LABS: DIFF IND NO
[2016-07-26 03:59] LABS: ALBUMIN SERUM 2.8 g/dL (3.5-5.0); BILIRUBIN,TOTAL 0.3 mg/dL (0.2-2.0); CALCIUM SERUM 8.6 mg/dL (8.4-10.2); CREATININE SERUM 0.6 mg/dL (0.6-1.4); MAGNESIUM 2.8 mg/dL (1.6-3.0); POTASSIUM 4.4 mmol/L (3.5-5.1); PROTEIN TOTAL SERUM 6.4 g/dL (6.0-8.3)
[2016-07-26 04:55] LABS: ARTERIAL BLD GAS O2 SATURATION 88.8 % (90.0-100.0); ARTERIAL BLOOD GAS CARBOXY HB 0.8 %sat (0.0-9.0); ARTERIAL BLOOD GAS HCO3 28.5 mmol/L; ARTERIAL BLOOD GAS MET HB 0.9 %sat (0.0-2.0); ARTERIAL BLOOD GAS PCO2 44.4 mmHg (35.0-45.0); ARTERIAL BLOOD GAS pH 7.417 (7.350-7.450)
[2016-07-26 05:03] LABS: ARTERIAL BLOOD GAS ALLEN TEST NORMAL; ARTERIAL BLOOD GAS ART SITE RIGHT RADIAL; ARTERIAL BLOOD GAS DELIVERY VENT; ARTERIAL BLOOD GAS PO2 57.8 mmHg (80.0-100); ARTERIAL BLOOD GAS VENT MODE AC; ARTERIAL DRAW? YES
[2016-07-26 05:30] LABS: ARTERIAL BLD GAS O2 SATURATION 97.4 % (90.0-100.0); ARTERIAL BLOOD GAS CARBOXY HB 0.8 %sat (0.0-9.0); ARTERIAL BLOOD GAS HCO3 27.1 mmol/L; ARTERIAL BLOOD GAS MET HB 0.8 %sat (0.0-2.0); ARTERIAL BLOOD GAS PCO2 36.4 mmHg (35.0-45.0); ARTERIAL BLOOD GAS pH 7.481 (7.350-7.450)
[2016-07-26 05:31] LABS: ARTERIAL BLOOD GAS ALLEN TEST NORMAL; ARTERIAL BLOOD GAS ART SITE LEFT RADIAL; ARTERIAL BLOOD GAS VENT MODE AC; ARTERIAL DRAW? YES
[2016-07-26 12:43] LABS: ARTERIAL BLD GAS O2 SATURATION 91.6 % (90.0-100.0); ARTERIAL BLOOD GAS CARBOXY HB 0.6 %sat (0.0-9.0); ARTERIAL BLOOD GAS HCO3 31.6 mmol/L; ARTERIAL BLOOD GAS MET HB 0.8 %sat (0.0-2.0); ARTERIAL BLOOD GAS PCO2 44.2 mmHg (35.0-45.0); ARTERIAL BLOOD GAS pH 7.463 (7.350-7.450)
[2016-07-26 12:44] LABS: ARTERIAL BLOOD GAS ART SITE LEFT RADIAL; ARTERIAL BLOOD GAS DELIVERY VENT; ARTERIAL BLOOD GAS PO2 63.7 mmHg (80.0-100); ARTERIAL BLOOD GAS VENT MODE CPAP; ARTERIAL DRAW? YES
[2016-07-27 03:51] LABS: ARTERIAL BLOOD GAS CARBOXY HB 0.5 %sat (0.0-9.0); ARTERIAL BLOOD GAS HCO3 30.1 mmol/L; ARTERIAL BLOOD GAS PCO2 37.5 mmHg (35.0-45.0); ARTERIAL BLOOD GAS pH 7.513 (7.350-7.450)
[2016-07-27 03:55] LABS: ARTERIAL BLOOD GAS PO2 73.2 mmHg (80.0-100)
[2016-07-27 03:56] LABS: ARTERIAL BLOOD GAS ART SITE RIGHT BRACHIAL; ARTERIAL BLOOD GAS DELIVERY VENT; ARTERIAL BLOOD GAS VENT MODE AC; ARTERIAL DRAW? YES
[2016-07-27 06:08] LABS: BASOPHIL% 0.1 % (0-2.5); DIFF IND NO; HEMATOCRIT 34.1 % (35.0-45.0); HEMOGLOBIN 11.2 gm/dL (12.0-16.0); LYMPHOCYTE# 1.9 X10e3 (1.0-3.5); LYMPHOCYTE% 11.1 % (17.0-45.0); MEAN CELL VOLUME 99.3 FL (83-96); MEAN CORPUSCULAR HEMOGLOBIN 32.7 PG (28-34); MEAN CORPUSCULAR HGB CONC 32.9 g/dL (30-36); MEAN PLATELET VOLUME 8.1 FL (6.5-11.5); MONOCYTE# 1.3 X10e3 (0-1.0); MONOCYTE% 7.4 % (3.0-12.0); NEUTROPHIL% 81.4 % (40-75); PLATELET COUNT 401 X10e3 (140-420); RED BLOOD COUNT 3.44 X10e (3.90-5.30); RED CELL DISTRIBUTION WIDTH 15.2 % (11.0-15.5); WHITE BLOOD COUNT 17.3 X10e3 (4.0-10.5)
[2016-07-27 07:09] LABS: ALBUMIN SERUM 2.9 g/dL (3.5-5.0); BILIRUBIN,TOTAL 0.5 mg/dL (0.2-2.0); CALCIUM SERUM 8.8 mg/dL (8.4-10.2); CREATININE SERUM 0.5 mg/dL (0.6-1.4); GLOM FILT RATE Estimated 121.1 mL/min (>60); MAGNESIUM 2.9 mg/dL (1.6-3.0); POTASSIUM 4.4 mmol/L (3.5-5.1); PROTEIN TOTAL SERUM 5.8 g/dL (6.0-8.3)
[2016-07-28 04:22] LABS: ARTERIAL BLD GAS O2 SATURATION 96.2 % (90.0-100.0); ARTERIAL BLOOD GAS CARBOXY HB 0.5 %sat (0.0-9.0); ARTERIAL BLOOD GAS HCO3 30.6 mmol/L; ARTERIAL BLOOD GAS MET HB 0.8 %sat (0.0-2.0); ARTERIAL BLOOD GAS PCO2 35.8 mmHg (35.0-45.0); ARTERIAL BLOOD GAS PO2 85.4 mmHg (80.0-100); ARTERIAL BLOOD GAS pH 7.539 (7.350-7.450)
[2016-07-28 04:27] LABS: ARTERIAL BLOOD GAS ART SITE LEFT BRACHIAL; ARTERIAL BLOOD GAS DELIVERY VENT; ARTERIAL BLOOD GAS VENT MODE AC; ARTERIAL DRAW? YES
[2016-07-28 04:51] LABS: BASOPHIL# 0.1 X10e3 (0-0.3); BASOPHIL% 0.6 % (0-2.5); DIFF IND NO; HEMATOCRIT 34.3 % (35.0-45.0); HEMOGLOBIN 11.4 gm/dL (12.0-16.0); LYMPHOCYTE# 2.1 X10e3 (1.0-3.5); LYMPHOCYTE% 10.2 % (17.0-45.0); MEAN CORPUSCULAR HEMOGLOBIN 33.3 PG (28-34); MEAN CORPUSCULAR HGB CONC 33.3 g/dL (30-36); MEAN PLATELET VOLUME 7.8 FL (6.5-11.5); MONOCYTE# 1.5 X10e3 (0-1.0); MONOCYTE% 7.4 % (3.0-12.0); NEUTROPHIL# 16.5 X10e3 (1.5-7.1); NEUTROPHIL% 81.8 % (40-75); PLATELET COUNT 376 X10e3 (140-420); RED BLOOD COUNT 3.43 X10e (3.90-5.30); RED CELL DISTRIBUTION WIDTH 15.5 % (11.0-15.5); WHITE BLOOD COUNT 20.1 X10e3 (4.0-10.5)
[2016-07-28 05:15] LABS: ALBUMIN SERUM 3.2 g/dL (3.5-5.0); BILIRUBIN,TOTAL 0.6 mg/dL (0.2-2.0); CALCIUM SERUM 8.8 mg/dL (8.4-10.2); CREATININE SERUM 0.5 mg/dL (0.6-1.4); GLOM FILT RATE Estimated 121.1 mL/min (>60); POTASSIUM 3.8 mmol/L (3.5-5.1); PROTEIN TOTAL SERUM 6.7 g/dL (6.0-8.3)
[2016-07-28 08:17] LABS: ARTERIAL BLOOD GAS CARBOXY HB 0.7 %sat (0.0-9.0); ARTERIAL BLOOD GAS HCO3 29.4 mmol/L; ARTERIAL BLOOD GAS MET HB 0.8 %sat (0.0-2.0); ARTERIAL BLOOD GAS PCO2 40.8 mmHg (35.0-45.0); ARTERIAL BLOOD GAS pH 7.466 (7.350-7.450)
[2016-07-28 08:19] LABS: ARTERIAL BLOOD GAS ART SITE RIGHT RADIAL; ARTERIAL BLOOD GAS DELIVERY VENT; ARTERIAL BLOOD GAS VENT MODE CPAP; ARTERIAL DRAW? YES
[2016-07-28 18:16] LABS: ARTERIAL BLD GAS O2 SATURATION 99.1 % (90.0-100.0); ARTERIAL BLOOD GAS CARBOXY HB 0.4 %sat (0.0-9.0); ARTERIAL BLOOD GAS HCO3 30.2 mmol/L; ARTERIAL BLOOD GAS MET HB 0.5 %sat (0.0-2.0); ARTERIAL BLOOD GAS PCO2 41.5 mmHg (35.0-45.0); ARTERIAL BLOOD GAS pH 7.471 (7.350-7.450)
[2016-07-28 18:17] LABS: ARTERIAL BLOOD GAS ALLEN TEST NORMAL; ARTERIAL BLOOD GAS ART SITE RIGHT RADIAL; ARTERIAL BLOOD GAS DELIVERY BIPAP 16/5; ARTERIAL DRAW? YES
[2016-07-28 20:34] LABS: BASOPHIL# 0.2 X10e3 (0-0.3); BASOPHIL% 0.6 % (0-2.5); HEMATOCRIT 38.5 % (35.0-45.0); HEMOGLOBIN 12.4 gm/dL (12.0-16.0); LYMPHOCYTE# 1.6 X10e3 (1.0-3.5); LYMPHOCYTE% 5.6 % (17.0-45.0); MEAN CORPUSCULAR HEMOGLOBIN 32.6 PG (28-34); MEAN CORPUSCULAR HGB CONC 32.3 g/dL (30-36); MEAN PLATELET VOLUME 8.6 FL (6.5-11.5); MONOCYTE# 2.3 X10e3 (0-1.0); NEUTROPHIL# 24.7 X10e3 (1.5-7.1); NEUTROPHIL% 85.8 % (40-75); PLATELET COUNT 438 X10e3 (140-420); RED BLOOD COUNT 3.81 X10e (3.90-5.30); RED CELL DISTRIBUTION WIDTH 15.5 % (11.0-15.5); WHITE BLOOD COUNT 28.8 X10e3 (4.0-10.5)
[2016-07-28 20:36] LABS: DIFF IND NO
[2016-07-29 06:05] LABS: BASOPHIL# 0.1 X10e3 (0-0.3); BASOPHIL% 0.2 % (0-2.5); EOSINOPHIL% 0.1 % (0.0-7.0); HEMATOCRIT 40.8 % (35.0-45.0); HEMOGLOBIN 13.2 gm/dL (12.0-16.0); LYMPHOCYTE# 2.3 X10e3 (1.0-3.5); LYMPHOCYTE% 8.4 % (17.0-45.0); MEAN CELL VOLUME 99.9 FL (83-96); MEAN CORPUSCULAR HEMOGLOBIN 32.3 PG (28-34); MEAN CORPUSCULAR HGB CONC 32.4 g/dL (30-36); MEAN PLATELET VOLUME 8.3 FL (6.5-11.5); MONOCYTE# 2.8 X10e3 (0-1.0); MONOCYTE% 10.2 % (3.0-12.0); NEUTROPHIL% 81.1 % (40-75); PLATELET COUNT 451 X10e3 (140-420); RED BLOOD COUNT 4.08 X10e (3.90-5.30); RED CELL DISTRIBUTION WIDTH 15.4 % (11.0-15.5); WHITE BLOOD COUNT 27.1 X10e3 (4.0-10.5)
[2016-07-29 06:09] LABS: DIFF IND YES
[2016-07-29 06:38] LABS: ANISOCYTOSIS SL; PLATELET ESTIMATE NORMAL (NORMAL)
[2016-07-29 08:58] LABS: URINE APPEARANCE CLOUDY; URINE BILIRUBIN NEG (NEG); URINE BLOOD NEG (NEG); URINE COLOR DK YELLOW; URINE GLUCOSE NEG (NEG); URINE KETONE TRACE (NEG); URINE LEUKOCYTE ESTERASE 1+ (NEG); URINE NITRATE NEG (NEG); URINE PH 6.5 (5-8); URINE PROTEIN 1+ (NEG); URINE SPECIFIC GRAVITY 1.031 (1.003-1.035)
[2016-07-29 09:01] LABS: CULTURE INDICATED? YES; URINE BACTERIA AUWI NEG (NEGATIVE); URINE SQUAMOUS EPITHELIAL CELL OCC /[HPF]
[2016-07-29 09:29] LABS: URINE MUCUS PRESENT
[2016-07-29 09:35] LABS: URINE YEAST PRESENT
[2016-07-29 14:10] LABS: URINE APPEARANCE CLEAR; URINE BILIRUBIN NEG (NEG); URINE BLOOD TRACE (NEG); URINE COLOR YELLOW; URINE GLUCOSE NEG (NEG); URINE KETONE TRACE (NEG); URINE LEUKOCYTE ESTERASE 1+ (NEG); URINE NITRATE NEG (NEG); URINE PH 6.5 (5-8); URINE PROTEIN NEG (NEG); URINE SPECIFIC GRAVITY 1.014 (1.003-1.035); URINE UROBILINOGEN 0.2 MG/DL (NEG)
[2016-07-29 14:12] LABS: CULTURE INDICATED? YES; URINE BACTERIA AUWI NEG (NEGATIVE); URINE SQUAMOUS EPITHELIAL CELL FEW /[HPF]
[2016-07-30 03:50] LABS: ARTERIAL BLD GAS O2 SATURATION 84.5 % (90.0-100.0); ARTERIAL BLOOD GAS CARBOXY HB 0.9 %sat (0.0-9.0); ARTERIAL BLOOD GAS HCO3 30.1 mmol/L; ARTERIAL BLOOD GAS MET HB 0.8 %sat (0.0-2.0); ARTERIAL BLOOD GAS pH 7.556 (7.350-7.450)
[2016-07-30 03:51] LABS: ARTERIAL BLOOD GAS ART SITE LEFT BRACHIAL; ARTERIAL BLOOD GAS DELIVERY ROOM AIR; ARTERIAL BLOOD GAS PO2 47.4 mmHg (80.0-100); ARTERIAL DRAW? YES
[2016-07-30 05:47] LABS: BASOPHIL# 0.1 X10e3 (0-0.3); BASOPHIL% 0.2 % (0-2.5); DIFF IND NO; HEMATOCRIT 42.7 % (35.0-45.0); LYMPHOCYTE# 2.3 X10e3 (1.0-3.5); LYMPHOCYTE% 9.6 % (17.0-45.0); MEAN CELL VOLUME 99.4 FL (83-96); MEAN CORPUSCULAR HEMOGLOBIN 32.5 PG (28-34); MEAN CORPUSCULAR HGB CONC 32.7 g/dL (30-36); MEAN PLATELET VOLUME 8.6 FL (6.5-11.5); MONOCYTE# 2.6 X10e3 (0-1.0); MONOCYTE% 10.8 % (3.0-12.0); NEUTROPHIL# 19.2 X10e3 (1.5-7.1); NEUTROPHIL% 79.4 % (40-75); PLATELET COUNT 457 X10e3 (140-420); RED CELL DISTRIBUTION WIDTH 15.6 % (11.0-15.5); WHITE BLOOD COUNT 24.2 X10e3 (4.0-10.5)
[2016-07-30 06:16] LABS: ALBUMIN SERUM 4.1 g/dL (3.5-5.0); BILIRUBIN,TOTAL 0.9 mg/dL (0.2-2.0); CALCIUM SERUM 9.6 mg/dL (8.4-10.2); CREATININE SERUM 0.6 mg/dL (0.6-1.4); POTASSIUM 3.4 mmol/L (3.5-5.1); PROTEIN TOTAL SERUM 7.9 g/dL (6.0-8.3)
[2016-07-30 21:41] LABS: BASOPHIL# 0.1 X10e3 (0-0.3); BASOPHIL% 0.3 % (0-2.5); HEMATOCRIT 42.3 % (35.0-45.0); HEMOGLOBIN 13.8 gm/dL (12.0-16.0); LYMPHOCYTE# 2.3 X10e3 (1.0-3.5); LYMPHOCYTE% 10.8 % (17.0-45.0); MEAN CELL VOLUME 100.1 FL (83-96); MEAN CORPUSCULAR HEMOGLOBIN 32.7 PG (28-34); MEAN CORPUSCULAR HGB CONC 32.7 g/dL (30-36); MEAN PLATELET VOLUME 8.8 FL (6.5-11.5); MONOCYTE# 2.2 X10e3 (0-1.0); MONOCYTE% 10.5 % (3.0-12.0); NEUTROPHIL# 16.9 X10e3 (1.5-7.1); NEUTROPHIL% 78.4 % (40-75); PLATELET COUNT 378 X10e3 (140-420); RED BLOOD COUNT 4.22 X10e (3.90-5.30); RED CELL DISTRIBUTION WIDTH 15.5 % (11.0-15.5); WHITE BLOOD COUNT 21.5 X10e3 (4.0-10.5)
[2016-07-30 21:42] LABS: DIFF IND NO
[2016-07-30 22:00] LABS: BUN/CREATININE RATIO 63.75; CREATININE SERUM 0.8 mg/dL (0.6-1.4); GLOM FILT RATE Estimated 92.3 mL/min (>60); POTASSIUM 4.1 mmol/L (3.5-5.1)
[2016-07-31 03:42] LABS: ARTERIAL BLD GAS O2 SATURATION 93.5 % (90.0-100.0); ARTERIAL BLOOD GAS CARBOXY HB 0.7 %sat (0.0-9.0); ARTERIAL BLOOD GAS HCO3 29.2 mmol/L; ARTERIAL BLOOD GAS MET HB 0.6 %sat (0.0-2.0); ARTERIAL BLOOD GAS PCO2 35.2 mmHg (35.0-45.0); ARTERIAL BLOOD GAS pH 7.527 (7.350-7.450)
[2016-07-31 03:44] LABS: ARTERIAL BLOOD GAS ALLEN TEST NORMAL; ARTERIAL BLOOD GAS ART SITE RIGHT RADIAL; ARTERIAL BLOOD GAS DELIVERY NASAL CANNULA; ARTERIAL BLOOD GAS PO2 67.7 mmHg (80.0-100); ARTERIAL DRAW? YES
[2016-07-31 07:07] LABS: HEMATOCRIT 41.8 % (35.0-45.0); HEMOGLOBIN 13.6 gm/dL (12.0-16.0); MEAN CELL VOLUME 101.2 FL (83-96); MEAN CORPUSCULAR HEMOGLOBIN 32.9 PG (28-34); MEAN CORPUSCULAR HGB CONC 32.5 g/dL (30-36); MEAN PLATELET VOLUME 9.3 FL (6.5-11.5); RED BLOOD COUNT 4.13 X10e (3.90-5.30); RED CELL DISTRIBUTION WIDTH 15.4 % (11.0-15.5); WHITE BLOOD COUNT 19.5 X10e3 (4.0-10.5)
[2016-07-31 07:33] LABS: ALBUMIN SERUM 3.7 g/dL (3.5-5.0); BILIRUBIN,TOTAL 1.1 mg/dL (0.2-2.0); CALCIUM SERUM 8.8 mg/dL (8.4-10.2); CREATININE SERUM 0.8 mg/dL (0.6-1.4); GLOM FILT RATE Estimated 92.3 mL/min (>60)
[2016-08-01 06:29] LABS: BASOPHIL# 0.1 X10e3 (0-0.3); BASOPHIL% 0.5 % (0-2.5); DIFF IND NO; EOSINOPHIL# 0.1 X10e3 (0-0.7); EOSINOPHIL% 0.3 % (0.0-7.0); HEMATOCRIT 42.2 % (35.0-45.0); HEMOGLOBIN 13.8 gm/dL (12.0-16.0); LYMPHOCYTE# 4.2 X10e3 (1.0-3.5); MEAN CELL VOLUME 100.9 FL (83-96); MEAN CORPUSCULAR HEMOGLOBIN 32.9 PG (28-34); MEAN CORPUSCULAR HGB CONC 32.7 g/dL (30-36); MEAN PLATELET VOLUME 10.3 FL (6.5-11.5); MONOCYTE% 9.4 % (3.0-12.0); NEUTROPHIL# 14.5 X10e3 (1.5-7.1); NEUTROPHIL% 69.8 % (40-75); PLATELET COUNT 208 X10e3 (140-420); RED BLOOD COUNT 4.19 X10e (3.90-5.30); RED CELL DISTRIBUTION WIDTH 15.5 % (11.0-15.5); WHITE BLOOD COUNT 20.8 X10e3 (4.0-10.5)
[2016-08-01 08:36] LABS: BUN/CREATININE RATIO 48.33; CALCIUM SERUM 8.5 mg/dL (8.4-10.2); CREATININE SERUM 0.6 mg/dL (0.6-1.4); POTASSIUM 3.2 mmol/L (3.5-5.1)
[2016-08-02 05:53] LABS: BASOPHIL% 0.3 % (0-2.5); EOSINOPHIL# 0.1 X10e3 (0-0.7); EOSINOPHIL% 0.7 % (0.0-7.0); HEMATOCRIT 35.9 % (35.0-45.0); LYMPHOCYTE# 4.1 X10e3 (1.0-3.5); MEAN CELL VOLUME 99.6 FL (83-96); MEAN CORPUSCULAR HEMOGLOBIN 32.3 PG (28-34); MEAN CORPUSCULAR HGB CONC 32.5 g/dL (30-36); MEAN PLATELET VOLUME 9.5 FL (6.5-11.5); MONOCYTE# 1.2 X10e3 (0-1.0); MONOCYTE% 6.9 % (3.0-12.0); NEUTROPHIL# 12.3 X10e3 (1.5-7.1); NEUTROPHIL% 69.1 % (40-75); PLATELET COUNT 235 X10e3 (140-420); RED CELL DISTRIBUTION WIDTH 15.2 % (11.0-15.5); WHITE BLOOD COUNT 17.8 X10e3 (4.0-10.5)
[2016-08-02 05:58] LABS: HEMOGLOBIN 11.7 gm/dL (12.0-16.0)
[2016-08-02 05:59] LABS: DIFF IND YES
[2016-08-02 06:04] LABS: ALBUMIN SERUM 3.2 g/dL (3.5-5.0); BILIRUBIN,TOTAL 0.6 mg/dL (0.2-2.0); CALCIUM SERUM 8.3 mg/dL (8.4-10.2); CREATININE SERUM 0.5 mg/dL (0.6-1.4); GLOM FILT RATE Estimated 121.1 mL/min (>60); POTASSIUM 3.2 mmol/L (3.5-5.1); PROTEIN TOTAL SERUM 6.1 g/dL (6.0-8.3)
[2016-08-02 06:25] LABS: ANISOCYTOSIS SL; PLATELET ESTIMATE NORMAL (NORMAL)
== END 2016-08-02 16:46 | DRG 166 ==
LOC: CED 03:44 → CEDOF 07:30 → CICCU2 14:39 → C5B 07-30 16:35
PROVIDERS: Emergency Medicine; Family Medicine; Internal Medicine; Nurse Practitioner; Nurse Practitioner Family
PROC: 0BH17EZ Insertion of Endotracheal Airway into Trachea, Via Natural or Artificial Opening (ICD-10-PCS; principal; 2016-07-21)
PROC: 0B9M8ZX Drainage of Bilateral Lungs, Via Natural or Artificial Opening Endoscopic, Diagnostic (ICD-10-PCS; 2016-07-21)
PROC: 5A1955Z Respiratory Ventilation, Greater than 96 Consecutive Hours (ICD-10-PCS; 2016-07-21)
PROC: 05HM33Z Insertion of Infusion Device into Right Internal Jugular Vein, Percutaneous Approach (ICD-10-PCS; 2016-07-21)
PROC: 0BJ08ZZ Inspection of Tracheobronchial Tree, Via Natural or Artificial Opening Endoscopic (ICD-10-PCS; 2016-07-21)
PROC: B24BZZ4 Ultrasonography of Heart with Aorta, Transesophageal (ICD-10-PCS; 2016-07-21)
PROC: B32TYZZ Computerized Tomography (CT Scan) of Left Pulmonary Artery using Other Contrast (ICD-10-PCS; 2016-07-26)
PROC: B32SYZZ Computerized Tomography (CT Scan) of Right Pulmonary Artery using Other Contrast (ICD-10-PCS; 2016-07-26)
DX: J96.22 Acute and chronic respiratory failure with hypercapnia (principal); J15.4 Pneumonia due to other streptococci; E44.0 Moderate protein-calorie malnutrition; E87.2 Acidosis; E87.0 Hyperosmolality and hypernatremia; J44.1 Chronic obstructive pulmonary disease with (acute) exacerbation; F31.89 Other bipolar disorder; E87.1 Hypo-osmolality and hyponatremia; E86.1 Hypovolemia; G40.909 Epilepsy, unspecified, not intractable, without status epilepticus; F41.9 Anxiety disorder, unspecified; Z90.49 Acquired absence of other specified parts of digestive tract; J96.21 Acute and chronic respiratory failure with hypoxia; Z99.81 Dependence on supplemental oxygen; R19.7 Diarrhea, unspecified; E87.6 Hypokalemia; D75.89 Other specified diseases of blood and blood-forming organs; E11.65 Type 2 diabetes mellitus with hyperglycemia; D53.9 Nutritional anemia, unspecified; T36.95XA Adverse effect of unspecified systemic antibiotic, initial encounter; G43.909 Migraine, unspecified, not intractable, without status migrainosus; Z68.26 Body mass index [BMI] 26.0-26.9, adult; R45.1 Restlessness and agitation
CPT/HCPCS: 31500; 36415; 36600; 71010; 71020; 71250; 71275; 74000; 74230; 80048; 80053; 80076; 80307; 81003; 82308; 82550; 82553; 82607; 82746; 82803; 82947; 83036; 83605; 83735; 83880; 84132; 84443; 84484; 85025; 85027; 85610; 85730; 87040; 87070; 87077; 87086; 87102; 87116; 87140; 87205; 87206; 87252; 87254; 87278; 87449; 87493; 87804; 87806; 88108; 88305; 88312; 89051; 92526; 92610; 92611; 93005; 93306; 94002; 94003; 94640; 94644; 94660; 94760; 94761; 94762; 96361; 96374; 97110; 97116; 97163; 97167; 97530; 97535; 99291; C9113; G8978-GP; G8979-GP; G8987-GO; G8988-GO; G8996-GN; G8997-GN; J0171; J0330; J0696; J1170; J1650; J1815; J1940; J1956; J2250; J2310; J2405; J2543; J2920; J2930; J3010; J3370; J3490; Q9967